=== PATIENT | female | born 1950 | race Caucasian/White ===

== ENCOUNTER 2017-09-13 14:50 | Inpatient (IN) | payer MEDICARE ==
[2017-09-13] MEDS ORDERED: niCARdipine 20MG In NaCl 20 MG/200 ML BAG ONE (16:21)
[2017-09-13 17:10] LABS: #Basophils 0.1 thou/uL (0.0-0.2); #Eosinphils 0.2 thou/uL (0.0-0.7); #Lymphocytes 2.3 thou/uL (1.20-3.40); #Neutrophils 8.5 thou/uL (1.40-6.50); %Basophils 0.9 % (0.0-1.0); %Eosinophils 1.6 % (0.0-10.0); %Lymphocytes 18.7 % (21.0-51.0); %Monocytes 8.1 % (0.0-10.0); %Neutrophils 70.7 % (42.0-75.0); Hemoglobin 13.9 g/dL (12.0-16.0); Mean Corpuscular HGB CONC 33.5 g/dL (32.0-36.0); Mean Corpuscular Volume 86.7 fl (81.0-99.0); Mean Platelet Volume 7.1 fL (7.4-10.4); Platelet Count 416 thou/uL (130-400); RBC Distribution Width 12.4 % (11.5-14.5); White Blood Cell (WBC) Count 12.1 thou/uL (4.8-10.8)
[2017-09-13 17:20] LABS: ALT (SGPT) 24 U/L (8-55); AST (SGOT) 21 U/L (5-34); Albumin 4.4 g/dL (3.4-4.8); Alkaline Phosphatase 80 U/L (40-150); Anion Gap 17 mmol/L (10-20); BUN (Urea Nitrogen) 21 mg/dL (9.8-20.1); Bilirubin, Total 0.5 mg/dL (0.2-1.2); Calc. Creatinine Clearance 0 mL/min (70-130); Calcium 9.7 mg/dL (7.8-10.44); Carbon Dioxide 22 mmol/L (23-31); Chloride 104 mmol/L (98-107); Estimated GFR-MDRD 80; Globulin 3.3 g/dL (2.4-3.5); Glucose 162 mg/dL (80-115); Potassium 4.2 mmol/L (3.5-5.1); Protein, Total 7.7 g/dL (6.0-8.3); Sodium 139 mmol/L (136-145)
[2017-09-13] MEDS ORDERED: Acetaminophen 650 MG Suppository ONE (18:46)
[2017-09-13] MEDS ORDERED: Ondansetron HCl/PF 4 MG/2 ML Vial IVP PRN (19:22)
[2017-09-13] MEDS ORDERED: Dextrose 5% in Water 1,000 ML IV PRN (19:22)
[2017-09-13] MEDS ORDERED: Dextrose 50% Abboject 50 ML SYRINGE SLOW IVP PRN (19:22)
[2017-09-13] MEDS ORDERED: HumaLOG 300 UNITS/3 ML VIAL SC PRN (19:22)
[2017-09-13] MEDS ORDERED: Lorazepam 2 MG/ML VIAL SLOW IVP PRN (19:22)
[2017-09-13] MEDS ORDERED: Famotidine/PF 20 mg/2ml Vial SLOW IVP SCH (21:00)
[2017-09-13 21:12] LABS: Amphetamine Not Detected (NotDetected); Barbiturates Screen Not Detected (NotDetected); Benzodiazepine Screen Not Detected (NotDetected); Cocaine Metabolite Screen Not Detected (NotDetected); Medtox Control Line Valid? VALID (VALID); Medtox Reader # READER 1; Methadone Not Detected (NotDetected); Methamphetamine Not Detected (NotDetected); Opiate Screen Not Detected (NotDetected); Oxycodone Screen Not Detected (NotDetected); Phencyclidine (PCP) Not Detected (NotDetected); THC/Cannabinoid Screen Not Detected (NotDetected); Tricyclic Screen Detected (NotDetected)
[2017-09-13] MEDS: Sodium Chloride 0.9% 1,000 ML IV SCH (21:21)
[2017-09-13] MEDS: Lorazepam 2 MG/ML VIAL SLOW IVP PRN (21:22)
[2017-09-13] MEDS: Famotidine 40 MG/4 ML VIAL SLOW IVP SCH (21:38)
--- NOTE | 2017-09-14 00:38 | HP ---
REASON FOR ADMISSION: Right upper extremity possible focal seizure, acute encephalopathy. HISTORY OF PRESENTING ILLNESS: Please note majority of this history is obtained by talking to patient's 3 daughters who are here at bedside and . The patient is not oriented and is very lethargic. She also has right upper extremity shaking, likely focal seizures. Per family, the patient slumped over on Wednesday and they took her to [facility]. She was placed under observation to rule out transient ischemic attack. On Wednesday around 3 in the afternoon, they discharged her after preliminary workup showing no acute CVA. This morning, the patient became unresponsive and could not talk. Her blood pressure was 200 in the house. They took her to [facility] where she was found to have had systolic blood pressures in the 200s. Her CT brain was negative. They did not have a neurologist and the patient was transferred here for further care. Family also mentioned that she usually shakes her right upper extremity occasionally, but not continuously as of now. On a good day, the patient feeds herself and talks continuously most of which could be understood by family even though she has dysarthria from prior stroke. She usually helps with transfers. She has caregiver at home Wednesday to Wednesday. She also goes to [facility] for exercising her right upper and lower extremities. She has sustained left hemiplegia in 2002. No fever. She has had three new medications including gabapentin, Risperdal and Crestor. These were introduced in the last 1-2 weeks per family. PAST MEDICAL AND SURGICAL HISTORY: History of CVA with left hemiplegia from 2002; dysarthria and she also has mild dysphagia when she tries to eat quicker; diabetes mellitus, type 2; hypertension; dementia; hysterectomy; cholecystectomy ; x2. CURRENT MEDICATIONS: Gabapentin 600 mg p.o. 3 times daily, Lipitor 80 mg p.o. at bedtime. Crestor was added to her regimen, it is likely an error or duplicate script with her visiting two different hospitals. Donepezil 5 mg daily, Flexeril 10 mg once in the morning and 2 tablets at bedtime, Risperdal 0.5 mg at 6:00 p.m., metformin 1 gram twice daily, lisinopril 40 mg p.o. daily. ALLERGIES: Allergic to COMPAZINE. PERSONAL HISTORY: Does not abuse alcohol or drugs. No history of smoking. She lives with her and children. FAMILY HISTORY: Please note the patient is adopted. Her adopted mom of coronary artery disease at the age of 56. Her adopted father of unknown cancer at the age of 77 years. REVIEW OF SYSTEMS: Cannot be obtained as patient is not oriented at present. PHYSICAL EXAMINATION: GENERAL: The patient is a 67-year-old female who is very lethargic and seems to have right upper extremity focal seizures. VITAL SIGNS: Blood pressure 119/126, pulse 120 per minute, respiratory rate 24 per minute, temperature 98.8 degrees Fahrenheit, saturating 99% on room air. NECK: Supple, no elevated JVD. HEENT: Eyes: Extraocular muscles intact. Pupils are reacting to light. Oral cavity: Mucous membranes are dry. No exudates or congestion. CARDIOVASCULAR SYSTEM: S1, S2 heard. Regular rhythm, tachycardic. RESPIRATORY SYSTEM: Air entry 1+ bilateral. No rales or rhonchi. ABDOMEN: Soft, bowel sounds heard. No tenderness, rigidity or guarding. EXTREMITIES: No peripheral edema or calf tenderness. VASCULAR SYSTEM: Peripheral pulses 1+ bilateral, no ischemic ulcerations or gangrene. CENTRAL NERVOUS SYSTEM: The patient has chronic left hemiplegia with wasting of left upper and lower extremities. She is also having focal seizures with repeated flexion-extension of right upper extremity. She is not doing the same with right lower extremity. PSYCHIATRIC SYSTEM: Cannot be assessed due to patient's current cognitive status. LABORATORY AND X-RAY FINDINGS: The patient apparently has had a CT brain done at [facility] this afternoon, which did not show any acute infarct or bleed Per Dr. Villavicencio, ER physician here. White count of 12, H&H 13 and 41, platelet count 416 with MCV of 86 and 70% neutrophils. Electrolytes are stable. BUN 21, creatinine 0.7, glucose 162. Liver enzymes within normal limits. Albumin is 4.4. CLINICAL IMPRESSION AND PLAN: The patient will be admitted to [facility] for hypertensive emergency and patient is currently on Cardene drip with systolic blood pressures coming down to 150s. She will be on normal saline at 80 mL per hour. The patient has what appears to be a right upper extremity focal seizure. I have discussed her findings with Dr. De Los Santos, who will be shortly examining patient. He will be directing anti-seizure medications after clinical exam. An MRI with and without contrast will be obtained. We will continue her Lipitor and Aricept, starting tomorrow. She will be kept n.p.o. for now. We will obtain urine drug screen, stat TSH levels for now. Please note the patient also has old left hemiplegia and has dysarthria and likely has mild dysphagia as well. I have discussed the current findings and possible etiologies for her right upper extremity flailing with acute encephalopathy with the and children at bedside. We also discussed code status with them. They do not want her to be intubated, but they are okay with chest compressions for now. Please note the patient was also started on 2 new medications including Risperdal and gabapentin, both of which will be held for now. We will continue to closely monitor her in IMCU. [facility]
[2017-09-14] MEDS: Lorazepam 2 MG/ML VIAL SLOW IVP PRN ×2 (01:56→21:02)
[2017-09-14 04:54] LABS: #Basophils 0.1 thou/uL (0.0-0.2); #Eosinphils 0.2 thou/uL (0.0-0.7); #Lymphocytes 1.9 thou/uL (1.20-3.40); #Monocytes 0.8 thou/uL (0.11-0.59); #Neutrophils 6.1 thou/uL (1.40-6.50); %Basophils 0.9 % (0.0-1.0); %Eosinophils 2.3 % (0.0-10.0); %Lymphocytes 20.5 % (21.0-51.0); %Neutrophils 67.4 % (42.0-75.0); Hemoglobin 12.7 g/dL (12.0-16.0); Mean Corpuscular HGB CONC 33.2 g/dL (32.0-36.0); Mean Corpuscular Hemoglobin 28.8 pg (27.0-31.0); Mean Corpuscular Volume 86.9 fl (81.0-99.0); Mean Platelet Volume 6.9 fL (7.4-10.4); Platelet Count 383 thou/uL (130-400); RBC Distribution Width 12.3 % (11.5-14.5); Red Blood Cell (RBC) Count 4.42 mill/uL (4.20-5.40); White Blood Cell (WBC) Count 9.1 thou/uL (4.8-10.8)
[2017-09-14 05:08] LABS: Anion Gap 16 mmol/L (10-20); BUN (Urea Nitrogen) 23 mg/dL (9.8-20.1); Calc. Creatinine Clearance 59 mL/min (70-130); Calcium 8.6 mg/dL (7.8-10.44); Carbon Dioxide 18 mmol/L (23-31); Chloride 108 mmol/L (98-107); Estimated GFR-MDRD 83; Glucose 145 mg/dL (80-115); Sodium 138 mmol/L (136-145)
[2017-09-14] MEDS: Sodium Chloride 0.9% 1,000 ML IV SCH ×2 (08:36→21:00)
[2017-09-14] MEDS: Enoxaparin Sodium 40 MG/0.4 ML SYRINGE SC SCH (08:36)
[2017-09-14] MEDS: Famotidine 40 MG/4 ML VIAL SLOW IVP SCH (08:36)
[2017-09-14] MEDS ORDERED: Sodium Chloride 0.9% 1,000 ML IV SCH (09:00)
[2017-09-14] MEDS: Labetalol HCl 100 MG/20 ML VIAL SLOW IVP PRN ×5 (09:34→21:02)
[2017-09-14] MEDS: Primidone 50 MG TAB PO SCH ×2 (11:27→21:05)
[2017-09-14 13:19] VITALS: BMI 29.6
--- NOTE | 2017-09-14 13:39 | CON ---
DATE OF CONSULTATION: 09/14/2017 SERVICE: Pulmonary Medicine. REASON FOR CONSULTATION: ICU patient. HISTORY OF PRESENT ILLNESS: The patient is a 67-year-old white female with past medical history significant for history of cerebrovascular accident. She also has advancing dementia. She has had multiple hospital stays here recently. Most recently, she was having some agitation. She went to [facility]. They started a new medication, Risperdal. There was concern for CVA and she underwent a workup. She had both CT and apparently an MRI. There were no acute findings that were identified. She was discharged from the hospital a little over a week ago. As previously mentioned, Risperdal and gabapentin were both new. Otherwise, she was in her usual state of health which is talking with significant dysarthria and moving around with assistance, but able to walk and take some steps, she became increasingly somnolent over the past 2 days with increasing slurring of the speech. Yesterday, she was found to be a little poorly responsive. She was brought to the emergency department once again. PAST MEDICAL HISTORY: 1. History of CVA with left-sided hemiplegia. 2. Dysarthria, chronic. 3. Type 2 diabetes mellitus. 4. Hypertension. 5. Dyslipidemia. 6. Dementia. PAST SURGICAL HISTORY: 1. Hysterectomy. 2. Cholecystectomy. 3. section x2. ALLERGIES: COMPAZINE. MEDICATIONS: List of her inpatient and outpatient medications was reviewed. Centrally acting medications were suspended. I gave her a liter of fluid, and we will try to get her off of the blood pressure drip. FAMILY HISTORY: Noncontributory. SOCIAL HISTORY: She does not have any access to alcohol, tobacco or illicit drugs at this time. She has no exposures that we are aware of. She lives with her and children. REVIEW OF SYSTEMS: This cannot be obtained as the patient is currently encephalopathic. PHYSICAL EXAMINATION: VITAL SIGNS: Afebrile, pulse 96, blood pressure 158/93, respirations 22, saturation 100% on room air. GENERAL: The patient is awake and alert. She is in no apparent distress. She has a general tremor. She will attend if you stimulate her. While sleeping, she demonstrates absolutely no tremor, but on waking or with any type of stimulation, she starts having a tremor in the right upper extremity. HEENT: Normocephalic, atraumatic. Sclerae are white, conjunctivae pink. Oral mucosa is moist without lesions. LUNGS: Decent air entry. There is no prolonged expiratory phase or wheezing appreciated. HEART: Tachycardic. Regular. ABDOMEN: Soft, nontender, nondistended. Bowel sounds are positive. MUSCULOSKELETAL: No cyanosis or clubbing. There is no pitting in the bilateral lower extremities. Tenting is present throughout. GENITOURINARY: No Redd catheter. NEUROLOGIC: See discussion and plan. LABORATORY DATA: WBC 9.1, hemoglobin 12.7, platelets 383,000. Basic metabolic profile is unremarkable. Bicarbonate 18, BUN 23, creatinine 0.71. Previous liver function studies were unremarkable including AST and ALT. Prolactin is 85 , TSH 2.5, down trending to 1.8. Urine drug screen is positive for TCAs. ASSESSMENT: 1. Metabolic encephalopathy. 2. Tremor. 3. Dementia. PLAN: I will get a CK, as she demonstrates a little bit of rigidity of the bilateral upper and lower extremities. It is not lead piping, but it may be on that spectrum. She has superimposed tremor in the right upper and lower extremities with stimulation that goes away otherwise. We will hold centrally acting medications. An EEG has been performed. The patient just had 2 imaging studies of her brain and so the MRI will be suspended for the time being. We will continue her maintenance fluids. She looks a little dry and so I will give her a liter of fluid as well. If the CK is unremarkable, we will transition her out of the ICU to the Neuro Unit. Pulmonary or Critical Care will continue to follow for the time being. 70 minutes have been devoted to this patient in various activities. I personally reviewed all imaging studies and laboratory data noted within this document. For fifty percent of this time, I was interacting with the patient at the bedside or coordinating care with the care team. For the remainder of the time I was immediately available to the patient in the hospital unit. MONIE
--- NOTE | 2017-09-14 16:42 | PDOC.PN ---
- Subjective Encounter Start Date: 09/14/17 Encounter Start Time: 12:35 Subjective: still is encephalopathic, not responding to verbal stimuli -: is shaking her right UE - Objective MAR Reviewed: Yes Vital Signs & Weight: Vital Signs (12 hours) Temp Pulse Resp BP Pulse Ox 09/14/17 16:00 98.2 F 09/14/17 15:13 96 192/99 H 09/14/17 13:00 98.3 F 09/14/17 11:31 96 151/77 H 09/14/17 09:34 96 151/77 H 09/14/17 07:32 98.1 F 96 22 H 100 09/14/17 07:00 98.1 F Weight Admit Weight 104 lb 15.04 oz Weight 146 lb 11 oz Most Recent Monitor Data Heart Rate from ECG 94 NIBP 166/100 NIBP BP-Mean 127 Respiration from ECG 28 SpO2 98 I&O: 09/13/17 09/14/17 09/15/17 06:59 06:59 06:59 Intake Total 663 1000 Output Total 600 Balance 663 400 Result Diagrams: 09/14/17 04:17 09/14/17 04:17 Additional Labs: Accuchecks 09/14/17 09/14/17 11:20 00:53 POC Glucose 154 H 124 H Phys Exam - Physical Examination HEENT: PERRLA, sclera anicteric Neck: no JVD holds her neck stiff Respiratory: no wheezing, no rales Cardiovascular: RRR, no significant murmur Gastrointestinal: soft, non-tender, no distention, positive bowel sounds Musculoskeletal: no edema, pulses present chronic left hemiplegia, right UE tremors/shaking not oriented, awakens but does not interact Dx/Plan (1) Acute encephalopathy Code(s): G93.40 - ENCEPHALOPATHY, UNSPECIFIED Status: Acute (2) Focal seizure Status: Suspected (3) Hemiparesis due to old cerebrovascular accident Code(s): I69.359 - HEMIPLGA FOLLOWING CEREBRAL INFARCTION AFFECTING UNSP SIDE Status: Chronic Comment: left hemiplegia (4) HTN (hypertension) Code(s): I10 - ESSENTIAL (PRIMARY) HYPERTENSION Status: Chronic Qualifiers: Hypertension type: essential hypertension Qualified Code(s): I10 - Essential (primary) hypertension (5) DM type 2 (diabetes mellitus, type 2) Status: Chronic Qualifiers: Diabetes mellitus intermediate card tender insulin use: without mcfp use Diabetes mellitus complication status: with unspecified complications Qualified Code(s) : E11.8 - Type 2 diabetes mellitus with unspecified complications - Plan got EEG done this am -: tx to stroke unit, speech for clearance-oral intake -: ?LP if ok with neurology -: right UE shaking suspected to be tremors, is on primidone -: unclear etiology for encephalopathy, await cultures * . , 2 daughters were given updates at bedside. Review of Systems - Medications/Allergies Allergies/Adverse Reactions: Allergies Allergy/AdvReac Type Severity Reaction Status Date / Time prochlorperazine Allergy Verified 09/14/17 05:47 [From Compazine] Medications: Current Medications Acetaminophen (Tylenol) 650 mg PO Q4H PRN PRN Reason: Headache/Fever or Pain Acetaminophen (Tylenol) 650 mg [place] Q4H PRN PRN Reason: Headache/Fever or Pain Atorvastatin Calcium (Lipitor) 80 mg PO HS [facility] Dextrose/Water (Dextrose 50%) 25 gm SLOW IVP PRN PRN PRN Reason: Hypoglycemia Enoxaparin Sodium (Lovenox) 40 mg SC 0900 [facility] Last Admin: 09/14/17 08:36 Dose: 40 mg Glucagon (Glucagon) 1 mg IM PRN PRN PRN Reason: Hypoglycemia Dextrose/Water (D5w) 1,000 mls @ 0 mls/hr IV .Q0M PRN; As Directed PRN Reason: Hypoglycemia Sodium Chloride (Normal Saline 0.9%) 1,000 mls @ 80 mls/hr IV .[id number] [facility] Last Admin: 09/14/17 08:36 Dose: 1,000 mls Insulin Human Lispro (Humalog) 0 units SC .MILD SLIDING SCALE PRN PRN Reason: Mild Correctional Scale Insulin Human Lispro (Humalog) 0 units SC .BEDTIME SLIDING SC PRN PRN Reason: Bedtime Correctional Scale Labetalol HCl (Normodyne) 20 mg SLOW IVP Q10MIN PRN PRN Reason: SBP Greater Than 180 Last Admin: 09/14/17 15:13 Dose: 20 mg Lorazepam (Ativan) 1 mg SLOW IVP Q4H PRN PRN Reason: tremors Last Admin: 09/14/17 01:56 Dose: 1 mg Primidone (Mysoline) 50 mg PO BID [facility] Last Admin: 09/14/17 11:27 Dose: 50 mg Sodium Chloride (Flush - Normal Saline) 10 ml IVF Q12HR [facility] Last Admin: 09/14/17 08:55 Dose: Not Given Sodium Chloride (Flush - Normal Saline) 10 ml IVF PRN PRN PRN Reason: Saline Flush
--- NOTE | 2017-09-14 20:47 | PRG ---
DATE OF SERVICE: 09/14/2017 SUBJECTIVE: Ms. Little continues to have persistent tremors in the right hand and the chin. Per lamonte ziegler, the patient does have a history of dementia and she does have episodes of confusion and disorie ntation that is not new. Today, she has been somewhat lethargic, although the nurses report that she does wake up and able to state her name and age. She is able to follow some simple commands. She w as not able to pass a swallow test and thus no primidone was given. She was only given 1 dose of IV Ativan, which I am not sure whether that has helped or not. PHYSICAL EXAMINATION: VITAL SIGNS: Blood pressure of 204/92, pulse of 77, temperature 98.8, respirations of 20, O2 sats 94 % on room air. GENERAL: Well-developed, well-nourished female resting in bed, in no apparent distress. RESPIRATORY: Clear to auscultation bilaterally. CARDIOVASCULAR: Regular rate and rhythm. NEUROLOGIC: Mental status: The patient is a drowsy appearing. She does wake up to verbal stimuli. She is able to state her name, her age, and able to identify her daughter and state her name as well as her . She is able to follow some simple commands. Cranial nerves: Pupils are 3 mm and r eactive. Visual zhou are full to threat. External muscles are intact. Face appears symmetric. T here is a tremor noted in her chin. Motor exam showed gegenhalten of upper extremities. Her strengt h appears 5/5 on both upper extremities. There is persistent tremors noted in the right hand that te nds to improve when she is being relaxed, during that time, she is able to follow commands. LABORATORY DATA: Reviewed, which included CBC and BMP, which is significant for glucose of 158 and C PK of 357, otherwise unremarkable. IMAGING STUDIES: CT head done at [facility] was reviewed, which showed extensive chr onic microvascular ischemic changes, otherwise no acute intracranial abnormality. IMPRESSION: 1. Tremors, likely essential tremors. 2. Dementia. 3. Encephalopathy. Ms. Little is a pleasant 67-year-old female who presented with tremors in her right hand a nd confusion. In my opinion, her tremors are likely essential tremors. Her confusion is likely meta bolic encephalopathy with underlying dementia. At this time, I have asked the nurse to give Ativan 1 mg IV dose since she is not able to take anything by mouth. I will start her on IV Keppra 500 mg b. i.d. as it may also help with the tremors. Once she is able to take oral medications, I will switch her from Keppra to a primidone. I have reviewed her EEG that was done earlier today, which did not s how any epileptiform discharges or sharp transients. While she was having tremors, she did have trip hasic waves, which would suggest encephalopathy. At this time, I would recommend continuing supporti ve care.
[2017-09-14] MEDS ORDERED: Donepezil HCl 5 MG TAB PO SCH (21:00)
[2017-09-14] MEDS: Atorvastatin Calcium 40 MG TAB PO SCH (21:05)
--- NOTE | 2017-09-14 21:38 | CON ---
DATE OF CONSULTATION: 09/13/2017 REFERRING PHYSICIAN: Dr. Yesica Wesley. REASON FOR CONSULTATION: Right upper extremity shaking and jerking. HISTORY OF PRESENT ILLNESS: Ms. Little is a pleasant 67-year-old female, who has been concerned for evaluation of right upper extremity shaking and jerking. History is obtained from patient's daughters and , who was present at bedside. Apparently, patient has been noted to have shaking and jerking of her right upper extremity since last Wednesday. This has been continuous. The daughter reports that she has had history of some shaking in her right arm over the past 6-8 months they were primarily present with activities; however, this severely got worse about last Wednesday. She had gone to [facility] where they had performed MRI brain and CT scan of the head, which were apparently unremarkable. They were told that she had a TIA and was discharged to home. Family reported that the tremors have been persistent since that day. She is also having confusion and decreased level of alertness as the symptoms were ongoing they decided to take her to the [facility], where she was noted to have systolic blood pressure in the 200s. She had a CT scan of the head done, which was negative. Since they did not have a neurologist for the coverage, the patient's family were asked to try and bring her to the [facility] for further evaluation. The patient has not had any fever, chills, headache, chest pain, palpitation during this time. PAST MEDICAL HISTORY: Significant for history of stroke in 2002 that resulted in left hemiplegia, left hemiparesis, hypertension, diabetes, and dementia. PAST SURGICAL HISTORY: Significant for hysterectomy, cholecystectomy, C- section x2. CURRENT MEDICATIONS: Please review MAR. ALLERGIES: Include COMPAZINE. SOCIAL HISTORY: She is adopted. She denies smoking or alcohol use. She does not smoke cigarettes, drink alcohol or use illicit drugs. She is . REVIEW OF SYSTEMS: As mentioned, which was negative. PHYSICAL EXAMINATION: VITAL SIGNS: Blood pressure of 137/78, pulse of 120, temperature of 97.6, respirations of 18, and O2 sats of 100% on room air. GENERAL: Well-developed, well-nourished female, in no apparent distress. RESPIRATORY: Clear to auscultation bilaterally. CARDIOVASCULAR: Regular rate and rhythm. NEUROLOGIC: Mental status: The patient is awake and alert. She is oriented to person only. She does not follow any commands. Speech and language: Severely dysarthric speech. Cranial nerves: Pupils are 3 mm and reactive. She blinks to threat bilaterally. Face appears symmetric. There is a tremor noted in her chin. There is no real appears midline. Motor exam showed increased tone of the left upper and left lower extremity. Her tone in the right upper and right lower extremity appears normal. She does have a gegenhalten, which makes it difficult to evaluate at that tone and rigidity of the right side. Her strength appears 4/5 in the right upper and right lower extremity and 3/5 in the left upper and left lower extremity. Sensory: She does withdraw to pain in both upper and lower extremities. Babinski. Deep tendon reflexes, brisk reflexes in both upper and lower extremities. Babinski: Plantar responses flexion bilaterally. Coordination gait and Romberg could not be tested. There is a persistent right hand and chin tremor noted. These are unlikely to be focal motor seizures as the tremor tends to resolve when patient is being calm and tends to apple picker more intensity when she gets somewhat anxious LABORATORY DATA: Reviewed, which included CBC, CMP, and urine drug screen, which is significant for white cell count of 12.1, platelet count of 416, glucose of 162, otherwise unremarkable. IMPRESSION: 1. Tremors. 2. Encephalopathy. ASSESSMENT AND PLAN: Ms. Little is a pleasant 67-year-old female with history of dementia, who presented with the episodes of tremors and confusion. On my exam, she is noted to have a persistent tremors in her right upper extremity, more so on the hand and the chin. These are likely essential tremors. This tremors are likely worsened with current changes in medications. There was initiated for her hallucinations which included risperidone as well as Neurontin. It is unknown. Family members do not know exactly when the risperidone was started. At this time, I would recommend starting patient on Primidone 50 mg b.i.d. until she is able to take oral intake, she is okay to receive Ativan 1 mg IV q.4 hours p.r.n. I will obtain EEG in the morning. She had an MRI brain done recently by [facility]. I will try to get the records from there to further evaluate for recent events. If we are not able to obtain those records, then we will obtain MRI brain with and without contrast over the next day or two. Continue supportive care. MTDD
[2017-09-15] MEDS: Labetalol HCl 100 MG/20 ML VIAL SLOW IVP PRN ×6 (06:35→23:47)
--- NOTE | 2017-09-15 09:03 | PRG ---
DATE OF SERVICE: 09/15/2017 SERVICE: Pulmonary Medicine. INTERVAL HISTORY: The patient is doing fine from a respiratory standpoint. She denies any current shortness of breath or chest discomfort. She is much more awake and responsive today. She still has a way to go to get back to baseline. However, she is clearly moving in the right direction. There were no overnight events. PHYSICAL EXAMINATION: VITAL SIGNS: Afebrile, pulse 73, blood pressure 132/70, respirations 16, saturation 91% on room air. GENERAL: Patient is awake and responsive. She is following some simple commands and answering simple questions. HEENT: Normocephalic, atraumatic. Sclerae are white, conjunctivae pink. Oral mucosa is moist without lesions. LUNGS: Decent air entry. I do not hear rhonchi, wheezing or crackles. HEART: Normal rate and regular. ABDOMEN: Soft, nontender, nondistended. Bowel sounds are positive. MUSCULOSKELETAL: No cyanosis or clubbing. There is no pitting in the bilateral lower extremities. NEUROLOGIC: Grossly nonfocal. LABORATORY DATA: Previous CK was 357. ASSESSMENT: 1. Metabolic encephalopathy. 2. Essential tremor. 3. Dementia. PLAN: The patient is clearly improving from a mentation standpoint. As such, we will continue supportive care. When she can tolerate p.o., we will transition her off the Keppra and primidone. If she cannot tolerate p.o. with another 24-48 hours, we may need to consider temporary feeding which can be discussed with the family. At this point, she has no need for ongoing pulmonary or critical care opinion. As such, I will sign off. Please call with additional questions or concerns. MONIE
--- NOTE | 2017-09-15 10:00 | PDOC.PN ---
- Subjective Encounter Start Date: 09/15/17 Encounter Start Time: 14:00 Subjective: Patient sleeping after given ativan. No changes. - Objective MAR Reviewed: Yes Vital Signs & Weight: Vital Signs (12 hours) Temp Pulse Resp BP Pulse Ox 09/15/17 08:00 97.1 F L 73 16 209/117 H 91 L 09/15/17 07:40 172/70 H 09/15/17 06:35 62 09/15/17 03:41 97.5 F L 62 14 182/80 H 100 09/14/17 23:23 98.0 F 75 16 160/76 H 91 L 09/14/17 22:47 172/88 H Weight Admit Weight 104 lb 15.04 oz Weight 146 lb 11 oz Most Recent Monitor Data Heart Rate from ECG 94 NIBP 166/100 NIBP BP-Mean 127 Respiration from ECG 28 SpO2 98 I&O: 09/14/17 09/15/17 09/16/17 06:59 06:59 06:59 Intake Total 663 1000 1920 Output Total 600 Balance 769 998 4814 Result Diagrams: 09/14/17 04:17 09/14/17 04:17 Additional Labs: Accuchecks 09/15/17 09/14/17 09/14/17 06:28 23:33 18:12 POC Glucose 106 122 H 158 H 09/14/17 11:20 POC Glucose 154 H Phys Exam - Physical Examination Constitutional: NAD HEENT: moist MMs Respiratory: no wheezing, no rales, no rhonchi, clear to auscultation bilateral Cardiovascular: RRR, no significant murmur Gastrointestinal: soft, positive bowel sounds Deviation from normal: sleeping Dx/Plan (1) Acute encephalopathy Code(s): G93.40 - ENCEPHALOPATHY, UNSPECIFIED Status: Acute (2) DM type 2 (diabetes mellitus, type 2) Status: Chronic Qualifiers: Diabetes mellitus senior living insulin use: without lobsterman use Diabetes mellitus complication status: with unspecified complications Qualified Code(s) : E11.8 - Type 2 diabetes mellitus with unspecified complications (3) HTN (hypertension) Code(s): I10 - ESSENTIAL (PRIMARY) HYPERTENSION Status: Chronic Qualifiers: Hypertension type: essential hypertension Qualified Code(s): I10 - Essential (primary) hypertension Comment: Uncontrolled, unable to take po Lisinopril. Will add IV hydralazine as needed. (4) Hemiparesis due to old cerebrovascular accident Code(s): I69.359 - HEMIPLGA FOLLOWING CEREBRAL INFARCTION AFFECTING UNSP SIDE Status: Chronic Comment: left hemiplegia - Plan cont current plan of care, PT/OT May need PEG if swallow doesn't improve. * . - Discharge Day Encounter end time: 14:20
[2017-09-15] MEDS: Acetaminophen 325 MG TAB PO PRN (11:24)
[2017-09-15] MEDS: Sodium Chloride 0.45% 1,000 ML IV SCH (11:24)
[2017-09-15] MEDS: Enoxaparin Sodium 40 MG/0.4 ML SYRINGE SC SCH (11:24)
[2017-09-15] MEDS: Primidone 50 MG TAB PO SCH ×2 (11:25→20:17)
[2017-09-15] MEDS: hydrALAZINE 20 MG/ML VIAL SLOW IVP PRN ×3 (11:47→20:52)
[2017-09-15] MEDS: Lorazepam 2 MG/ML VIAL SLOW IVP PRN ×2 (11:49→20:07)
[2017-09-15] MEDS: Sodium Chloride 0.9% 1,000 ML IV SCH (12:32)
[2017-09-15] MEDS: Atorvastatin Calcium 40 MG TAB PO SCH (20:17)
[2017-09-16] MEDS: Sodium Chloride 0.45% 1,000 ML IV SCH ×2 (02:22→20:25)
[2017-09-16] MEDS: Labetalol HCl 100 MG/20 ML VIAL SLOW IVP PRN (04:41)
[2017-09-16] MEDS: Lorazepam 2 MG/ML VIAL SLOW IVP PRN ×3 (05:07→21:20)
[2017-09-16 05:45] LABS: #Basophils 0.1 thou/uL (0.0-0.2); #Eosinphils 0.3 thou/uL (0.0-0.7); #Lymphocytes 1.8 thou/uL (1.20-3.40); #Monocytes 0.9 thou/uL (0.11-0.59); %Eosinophils 3.8 % (0.0-10.0); %Monocytes 9.9 % (0.0-10.0); %Neutrophils 65.4 % (42.0-75.0); Hemoglobin 12.2 g/dL (12.0-16.0); Mean Corpuscular Hemoglobin 27.6 pg (27.0-31.0); Mean Corpuscular Volume 86.2 fl (81.0-99.0); Mean Platelet Volume 7.4 fL (7.4-10.4); Platelet Count 356 thou/uL (130-400); RBC Distribution Width 12.2 % (11.5-14.5); Red Blood Cell (RBC) Count 4.44 mill/uL (4.20-5.40); White Blood Cell (WBC) Count 9.1 thou/uL (4.8-10.8)
[2017-09-16 05:51] LABS: Anion Gap 16 mmol/L (10-20); BUN (Urea Nitrogen) 15 mg/dL (9.8-20.1); Calc. Creatinine Clearance 85 mL/min (70-130); Calcium 8.9 mg/dL (7.8-10.44); Carbon Dioxide 19 mmol/L (23-31); Chloride 106 mmol/L (98-107); Estimated GFR-MDRD 85; Glucose 130 mg/dL (80-115); Magnesium 1.4 mg/dL (1.6-2.6); Phosphorus 3.8 mg/dL (2.3-4.7); Potassium 3.6 mmol/L (3.5-5.1); Sodium 137 mmol/L (136-145)
[2017-09-16] MEDS: Primidone 50 MG TAB PO SCH ×5 (08:05→20:15)
[2017-09-16] MEDS: Enoxaparin Sodium 40 MG/0.4 ML SYRINGE SC SCH (09:27)
--- NOTE | 2017-09-16 09:42 | PDOC.PN ---
- Subjective Encounter Start Date: 09/16/17 Encounter Start Time: 11:50 Subjective: Patient agitated, repeating "headache" constantly. Sitter reports patient -: has had chronic SUE mult times per day since stroke in 2002, takes on -: Tylenol, 2-3 times daily for this. - Objective MAR Reviewed: Yes Vital Signs & Weight: Vital Signs (12 hours) Temp Pulse Resp BP BP BP Pulse Ox 09/16/17 07:42 97.6 F 86 16 172/98 H 97 09/16/17 04:49 167/104 H 09/16/17 04:41 74 09/16/17 04:00 97.8 F 74 16 200/98 H 96 09/16/17 01:19 169/92 H 09/16/17 00:07 180/94 H 09/16/17 00:00 97.3 F L 78 20 180/94 H 96 09/15/17 23:47 96 183/93 H 09/15/17 23:33 96 216/112 H 09/15/17 21:56 162/82 H Weight Admit Weight 104 lb 15.04 oz Weight 146 lb 11 oz Most Recent Monitor Data Heart Rate from ECG 94 NIBP 166/100 NIBP BP-Mean 127 Respiration from ECG 28 SpO2 98 I&O: 09/15/17 09/16/17 09/17/17 06:59 06:59 06:59 Intake Total 1000 3510 Output Total 600 Balance 400 3510 Result Diagrams: 09/16/17 04:32 09/16/17 04:32 Additional Labs: Accuchecks 09/16/17 09/16/17 09/15/17 05:41 00:16 20:25 POC Glucose 140 H 138 H 142 H 09/15/17 16:35 POC Glucose 128 H Phys Exam - Physical Examination mild agitation HEENT: moist MMs Respiratory: no wheezing, no rales, no rhonchi Cardiovascular: RRR, no significant murmur Gastrointestinal: soft, positive bowel sounds Musculoskeletal: no edema right sided tremor, left side weakness Deviation from normal: slurred speech and mostly just repeats what is said to her, more alert than yesterday Dx/Plan (1) Acute encephalopathy Code(s): G93.40 - ENCEPHALOPATHY, UNSPECIFIED Status: Acute Comment: improving, switching to oral primadone as able with swallow (2) DM type 2 (diabetes mellitus, type 2) Status: Chronic Qualifiers: Diabetes mellitus detention insulin use: without director long term care use Diabetes mellitus complication status: with unspecified complications Qualified Code(s) : E11.8 - Type 2 diabetes mellitus with unspecified complications Comment: holding metformin, ISS for now (3) HTN (hypertension) Code(s): I10 - ESSENTIAL (PRIMARY) HYPERTENSION Status: Chronic Qualifiers: Hypertension type: essential hypertension Qualified Code(s): I10 - Essential (primary) hypertension Comment: Uncontrolled, unable to take po Lisinopril. Will add IV hydralazine as needed. Restart oral meds as swallow allows. Will add HCTZ to the lisinopril as well. (4) Hemiparesis due to old cerebrovascular accident Code(s): I69.359 - HEMIPLGA FOLLOWING CEREBRAL INFARCTION AFFECTING UNSP SIDE Status: Chronic Comment: left hemiplegia - Plan cont current plan of care, PT/OT, speech therapy, DVT proph w/lovenox Suspect patient has an element of hypertensive encephalopathy. Mental -: status improving as BP improves. Will likely need placement in next few day -: after taking po well and BP better controlled. Family refusing SNF/rehab at -: this point so will eventually go home with HH. Await further Neuro eval and -: recs. * . - Discharge Day Encounter end time: 12:10
[2017-09-16] MEDS ORDERED: Lisinopril 20 MG TAB PO SCH (09:45)
[2017-09-16] MEDS ORDERED: Hydrochlorothiazide 25 MG TAB PO SCH (09:45)
[2017-09-16] MEDS: Acetaminophen 325 MG TAB PO PRN (10:54)
[2017-09-16] MEDS: hydrALAZINE 20 MG/ML VIAL SLOW IVP PRN ×2 (14:06→20:30)
--- NOTE | 2017-09-16 18:55 | PRG ---
DATE OF SERVICE: 09/16/2017 SUBJECTIVE: Ms. iLttle is a pleasant 67-year-old female who presented with the increasing confusion and tremors in the right upper extremity. She has been started on IV Keppra until she has been on oral intake. This has helped with the tremors according to her family. She was little more talkative yesterday. She was able to follow some simple commands yesterday. Today, she has been so mewhat more agitated. Her tremors are still under control with medication. She is still not able to swallow safely and thus continues to be on n.p.o. OBJECTIVE: VITAL SIGNS: Blood pressure of 175/76, pulse of 90, temperature of 97.6, respirations are 20, O2 sat s of 93% on room air. GENERAL: Somewhat agitated female, resting in bed, in no apparent distress. RESPIRATORY: Clear to auscultation bilaterally. CARDIOVASCULAR: Regular rate and rhythm. NEUROLOGICAL: Mental status: The patient is awake, but confused and disoriented. She is very agita rosa. She is able to respond to her name and able to follow some simple commands. Cranial nerves: P upils are 3 mm and reactive. Face appears symmetric. Motor exam showed normal tone on the right upp er and right lower extremity. She has increased tone in the left upper and left lower extremity that is from her prior stroke. Her tremors in the right hand is much less compared to day before yesterd ay when I saw her. She is more agitated today than previously seen. IMAGING STUDIES: MRI brain that was done at [facility] was reviewed, which showed prior right c erebral hemisphere hemorrhagic stroke. There were also micro hemorrhages throughout the brain. This is likely indicative of amyloid angiopathy. IMPRESSION: 1. Confusion, likely toxic metabolic encephalopathy with underlying dementia. 2. Essential tremors. ASSESSMENT AND PLAN: Ms. Little is a pleasant 67-year-old female who presented with the c onfusion and increasing tremors in the right upper extremity. I have reviewed her EEG that was done on day before yesterday, which showed no electrographic seizures. It showed mild to moderate nonspec ific cerebral dysfunction. Her tremors did not correlate with any seizure type activity. I have rev iewed her MRI brain done at [facility], which showed multiple microhemorrhages throughout the br ain, which would suggest amyloid angiopathy. This can explain her dementia. In my opinion, her rece nt confusion is due to toxic metabolic encephalopathy with underlying worsening of her dementia. I melchor yeung discussed with the family that they need to think about having a feeding tube placed for nutritio nal support. Once she is able to tolerate oral intake or have a feeding tube, she can be started on Seroquel 25 mg b.i.d. for agitation and confusion. She can also be started on primidone 50 mg b.i.d. for tremor control. Continue Ativan as needed.
[2017-09-16] MEDS: Atorvastatin Calcium 40 MG TAB PO SCH (20:17)
[2017-09-16] MEDS ORDERED: Non-Formulary Item 1 EACH (Risperidone [Risperdal] 0.5 MG) PO SCH (21:00)
[2017-09-17] MEDS: hydrALAZINE 20 MG/ML VIAL SLOW IVP PRN ×2 (00:07→15:59)
[2017-09-17 04:58] LABS: #Basophils 0.1 thou/uL (0.0-0.2); #Eosinphils 0.3 thou/uL (0.0-0.7); #Lymphocytes 1.9 thou/uL (1.20-3.40); #Neutrophils 6.9 thou/uL (1.40-6.50); %Eosinophils 3.2 % (0.0-10.0); %Lymphocytes 18.3 % (21.0-51.0); %Neutrophils 67.5 % (42.0-75.0); Hemoglobin 12.9 g/dL (12.0-16.0); Mean Corpuscular HGB CONC 33.8 g/dL (32.0-36.0); Mean Corpuscular Volume 85.9 fl (81.0-99.0); Platelet Count 367 thou/uL (130-400); RBC Distribution Width 12.2 % (11.5-14.5); Red Blood Cell (RBC) Count 4.46 mill/uL (4.20-5.40); White Blood Cell (WBC) Count 10.2 thou/uL (4.8-10.8)
[2017-09-17 05:22] LABS: Anion Gap 15 mmol/L (10-20); BUN (Urea Nitrogen) 13 mg/dL (9.8-20.1); Calc. Creatinine Clearance 92 mL/min (70-130); Calcium 9.2 mg/dL (7.8-10.44); Carbon Dioxide 20 mmol/L (23-31); Chloride 101 mmol/L (98-107); Estimated GFR-MDRD Greater than 90; Glucose 122 mg/dL (80-115); Magnesium 1.4 mg/dL (1.6-2.6); Potassium 3.5 mmol/L (3.5-5.1); Sodium 132 mmol/L (136-145)
[2017-09-17] MEDS: Lorazepam 2 MG/ML VIAL SLOW IVP PRN ×2 (05:51→20:57)
[2017-09-17] MEDS: Lisinopril 20 MG TAB PO SCH (08:23)
[2017-09-17] MEDS: Hydrochlorothiazide 25 MG TAB PO SCH (08:24)
[2017-09-17] MEDS: Primidone 50 MG TAB PO SCH ×2 (08:24→21:03)
[2017-09-17] MEDS: risperiDONE 0.25 MG TAB PO SCH ×2 (08:25→21:03)
[2017-09-17] MEDS: Enoxaparin Sodium 40 MG/0.4 ML SYRINGE SC SCH (08:26)
[2017-09-17] MEDS: Donepezil HCl 5 MG TAB PO SCH (08:26)
[2017-09-17] MEDS: Labetalol HCl 100 MG/20 ML VIAL SLOW IVP PRN (08:27)
[2017-09-17] MEDS ORDERED: Non-Formulary Item 1 EACH (Lisinopril [Lisinopril] 40 MG) PO SCH (09:00)
--- NOTE | 2017-09-17 09:15 | PDOC.PN ---
- Subjective Encounter Start Date: 09/17/17 Encounter Start Time: 10:30 Subjective: Patient more alert and less agitated this AM. Denies complaint. -: Speaking a bit more and with clearer speech. Still keeps eyes closed -: most of the time, but will open them if asked. - Objective MAR Reviewed: Yes Vital Signs & Weight: Vital Signs (12 hours) Temp Pulse Resp BP BP BP Pulse Ox 09/17/17 08:27 109 H 09/17/17 08:23 195/146 H 09/17/17 08:00 98.1 F 106 H 16 200/140 H 99 09/17/17 04:00 98.2 F 95 16 149/87 H 96 09/17/17 00:32 155/88 H 09/17/17 00:07 105 H 201/132 H 09/16/17 22:00 158/86 H Weight Admit Weight 104 lb 15.04 oz Weight 146 lb 11 oz Most Recent Monitor Data Heart Rate from ECG 94 NIBP 166/100 NIBP BP-Mean 127 Respiration from ECG 28 SpO2 98 I&O: 09/16/17 09/17/17 09/18/17 06:59 06:59 06:59 Intake Total 3510 900 Balance 3510 900 Result Diagrams: 09/17/17 04:35 09/17/17 04:35 Additional Labs: Accuchecks 09/17/17 09/17/17 09/16/17 06:29 00:13 16:57 POC Glucose 124 H 146 H 115 H 09/16/17 11:14 POC Glucose 134 H Phys Exam - Physical Examination Constitutional: NAD HEENT: moist MMs Respiratory: no wheezing, no rales, no rhonchi Cardiovascular: RRR, no significant murmur Gastrointestinal: soft, positive bowel sounds Musculoskeletal: no edema tremor in RUE much better, still a little restless, but much better than yesterday Psychiatric: normal affect Dx/Plan (1) Acute encephalopathy Code(s): G93.40 - ENCEPHALOPATHY, UNSPECIFIED Status: Acute Comment: improving, switching to oral primadone as able with swallow, likely related to progressive dementia (2) DM type 2 (diabetes mellitus, type 2) Status: Chronic Qualifiers: Diabetes mellitus care home insulin use: without middle or intermediate school principal use Diabetes mellitus complication status: with unspecified complications Qualified Code(s) : E11.8 - Type 2 diabetes mellitus with unspecified complications Comment: holding metformin, ISS for now (3) HTN (hypertension) Code(s): I10 - ESSENTIAL (PRIMARY) HYPERTENSION Status: Chronic Qualifiers: Hypertension type: essential hypertension Qualified Code(s): I10 - Essential (primary) hypertension Comment: Uncontrolled, unable to take po Lisinopril. Will add IV hydralazine as needed. Restart oral meds as swallow allows. Will add HCTZ to the lisinopril as well. (4) Hemiparesis due to old cerebrovascular accident Code(s): I69.359 - HEMIPLGA FOLLOWING CEREBRAL INFARCTION AFFECTING UNSP SIDE Status: Chronic Comment: left hemiplegia - Plan cont current plan of care, PT/OT, speech therapy Will need PEG if can't swallow, speech to reevaluate today. If gets -: PEG can go home with home health as family doesn't want SNF. * . - Discharge Day Encounter end time: 10:40
[2017-09-17] MEDS: Sodium Chloride 0.45% 1,000 ML IV SCH (13:01)
--- NOTE | 2017-09-17 20:13 | CON ---
DATE OF CONSULTATION: 09/17/2017 HISTORY OF PRESENT ILLNESS: Patient is a 67-year-old female who was admitted 4 days ago fo r altered mental status and some new tremors. The patient had difficulty feeding and has been evalua rosa by speech pathology and she has some swallowing defects. Reportedly, the family wants a percutan eous endoscopic gastrostomy. She adds nothing to history of present illness. PAST MEDICAL HISTORY: Includes cerebrovascular accident, diabetes mellitus and hypertension. PAST SURGICAL HISTORY: Includes hysterectomy, cholecystectomy, . MEDICATIONS: Include Lipitor 80 mg p.o. at bedtime, Aricept 5 mg p.o. daily, Lovenox 40 mg subcu q.a .m., insulin sliding scale, hydrochlorothiazide 12.5 mg daily, lisinopril 40 mg p.o. daily, Mysoline 50 mg p.o. b.i.d., risperidone 0.5 mg p.o. b.i.d., Keppra 500 mg IV b.i.d. ALLERGIES: Include COMPAZINE. SOCIAL HISTORY: Unobtainable. FAMILY HISTORY: Unobtainable. REVIEW OF SYSTEMS: Unobtainable. PHYSICAL EXAMINATION: VITAL SIGNS: Temperature 98.5, pulse 90, respiratory rate 20, blood pressure 202/110. HEENT: Shows neurologic deficits from previous cerebrovascular accident. CHEST: Clear. CARDIOVASCULAR: Regular rate and rhythm. ABDOMEN: Soft, nontender, without organomegaly or masses. RECTAL: Deferred. EXTREMITIES: Normal. LABORATORY DATA: Shows a white blood cell count 10.2, hemoglobin 12.9, hematocrit 38.3, sodium 132, CO2 of 20, glucose 122. ASSESSMENT: 1. Oropharyngeal dysphagia - multifactorial. 2. History of cerebrovascular accident. 3. Hypertension. RECOMMENDATIONS: EGD, percutaneous endoscopic gastrostomy in a.m.
[2017-09-17] MEDS: Atorvastatin Calcium 40 MG TAB PO SCH (21:03)
[2017-09-18] MEDS: Sodium Chloride 0.45% 1,000 ML IV SCH ×3 (04:39→18:43)
[2017-09-18 05:01] LABS: #Basophils 0.1 thou/uL (0.0-0.2); #Eosinphils 0.3 thou/uL (0.0-0.7); #Monocytes 0.9 thou/uL (0.11-0.59); #Neutrophils 4.9 thou/uL (1.40-6.50); %Basophils 0.8 % (0.0-1.0); %Eosinophils 3.9 % (0.0-10.0); %Lymphocytes 24.7 % (21.0-51.0); %Monocytes 10.6 % (0.0-10.0); Hemoglobin 12.1 g/dL (12.0-16.0); Mean Corpuscular HGB CONC 33.7 g/dL (32.0-36.0); Mean Corpuscular Hemoglobin 29.5 pg (27.0-31.0); Mean Corpuscular Volume 87.6 fl (81.0-99.0); Mean Platelet Volume 7.3 fL (7.4-10.4); Platelet Count 327 thou/uL (130-400); RBC Distribution Width 12.1 % (11.5-14.5); Red Blood Cell (RBC) Count 4.11 mill/uL (4.20-5.40); White Blood Cell (WBC) Count 8.2 thou/uL (4.8-10.8)
[2017-09-18 05:13] LABS: Anion Gap 15 mmol/L (10-20); BUN (Urea Nitrogen) 15 mg/dL (9.8-20.1); Calc. Creatinine Clearance 83 mL/min (70-130); Calcium 8.9 mg/dL (7.8-10.44); Carbon Dioxide 19 mmol/L (23-31); Chloride 102 mmol/L (98-107); Estimated GFR-MDRD 83; Glucose 116 mg/dL (80-115); Magnesium 1.5 mg/dL (1.6-2.6); Phosphorus 4.5 mg/dL (2.3-4.7); Potassium 3.4 mmol/L (3.5-5.1); Sodium 133 mmol/L (136-145)
[2017-09-18] MEDS: risperiDONE 0.25 MG TAB PO SCH ×2 (08:42→20:51)
[2017-09-18] MEDS: Donepezil HCl 5 MG TAB PO SCH (08:42)
[2017-09-18] MEDS: Hydrochlorothiazide 25 MG TAB PO SCH (08:42)
[2017-09-18] MEDS: Primidone 50 MG TAB PO SCH ×2 (08:42→20:51)
[2017-09-18] MEDS: Enoxaparin Sodium 40 MG/0.4 ML SYRINGE SC SCH (08:42)
[2017-09-18] MEDS: Lisinopril 20 MG TAB PO SCH (08:42)
--- NOTE | 2017-09-18 09:39 | PDOC.PN ---
- Subjective Encounter Start Date: 09/18/17 Encounter Start Time: 14:15 Subjective: Patient a bit agitated after PEG placement. No better with Ativan, so gave -: a very small dose of Morphine. Now sleeping. - Objective MAR Reviewed: Yes Vital Signs & Weight: Vital Signs (12 hours) Temp Pulse Resp BP BP BP Pulse Ox 09/18/17 08:42 202/110 H 09/18/17 08:00 98.3 F 104 H 20 09/18/17 07:30 98.3 F 104 H 20 193/111 H 96 09/18/17 03:24 97.0 F L 89 15 128/64 94 L 09/18/17 00:31 97.4 F L 100 15 138/76 94 L Weight Admit Weight 104 lb 15.04 oz Weight 146 lb 11 oz Most Recent Monitor Data Heart Rate from ECG 94 NIBP 166/100 NIBP BP-Mean 127 Respiration from ECG 28 SpO2 98 I&O: 09/17/17 09/18/17 09/19/17 06:59 06:59 06:59 Intake Total 900 1830 Balance 900 1830 Result Diagrams: 09/18/17 04:26 09/18/17 04:26 Additional Labs: Accuchecks 09/18/17 09/17/17 09/17/17 00:29 16:07 10:22 POC Glucose 117 H 143 H 139 H Phys Exam - Physical Examination Constitutional: NAD HEENT: moist MMs Respiratory: no wheezing, no rales, no rhonchi Cardiovascular: RRR, no significant murmur Gastrointestinal: soft, positive bowel sounds moves right arm well Deviation from normal: Sleeping Dx/Plan (1) Acute encephalopathy Code(s): G93.40 - ENCEPHALOPATHY, UNSPECIFIED Status: Acute Comment: improving very slightly, likely related to progressive dementia (2) DM type 2 (diabetes mellitus, type 2) Status: Chronic Qualifiers: Diabetes mellitus rn long term care insulin use: without rn long term care use Diabetes mellitus complication status: with unspecified complications Qualified Code(s) : E11.8 - Type 2 diabetes mellitus with unspecified complications Comment: holding metformin, ISS for now (3) HTN (hypertension) Code(s): I10 - ESSENTIAL (PRIMARY) HYPERTENSION Status: Chronic Qualifiers: Hypertension type: essential hypertension Qualified Code(s): I10 - Essential (primary) hypertension Comment: Uncontrolled, unable to take po Lisinopril. Will add IV hydralazine as needed. Restart oral meds as swallow allows. Will add HCTZ to the lisinopril as well. (4) Hemiparesis due to old cerebrovascular accident Code(s): I69.359 - HEMIPLGA FOLLOWING CEREBRAL INFARCTION AFFECTING UNSP SIDE Status: Chronic Comment: left hemiplegia (5) Dysphagia Code(s): R13.10 - DYSPHAGIA, UNSPECIFIED Status: Acute Qualifiers: Dysphagia type: unspecified Qualified Code(s): R13.10 - Dysphagia, unspecified Comment: multifactoral, PEG this AM - Plan cont current plan of care, PT/OT Arranging home health, plan on d/c when able to give food/meds with PEG * . - Discharge Day Encounter end time: 14:30
[2017-09-18] MEDS ORDERED: PROPOFOL 20 ML ONE ×2 (09:45)
[2017-09-18] MEDS ORDERED: CEFAZOLIN/Water 2 GM/20 ML SYRINGE ONE (11:21)
[2017-09-18] MEDS: Lorazepam 2 MG/ML VIAL SLOW IVP PRN (12:32)
[2017-09-18] MEDS ORDERED: CEFAZOLIN/Water 2 GM/20 ML SYRINGE SLOW IVP SCH (12:45)
--- NOTE | 2017-09-18 13:22 | OP ---
PREOPERATIVE DIAGNOSIS: Oropharyngeal dysphagia. DESCRIPTION OF PROCEDURE: After informed consent was obtained, the patient placed in the left latera l decubitus position. Anesthesia was administered per the Anesthesia Department. Forward viewing en doscope was inserted into esophagus under direct visualization with ease and passed to the second por tion of the duodenum with ease. No mucosal abnormalities were noted. The area was prepped and drape d in usual manner. Anesthesia was applied with 1% lidocaine without epinephrine. A needle was inser rosa through the abdominal wall into the gastric lumen on the first pass. A wire was passed, snared, and brought out of the mouth after a small incision was made. Reinsertion of the endoscope showed th e peg bumper to be in good position. ASSESSMENT: Successful percutaneous endoscopic gastrostomy. RECOMMENDATIONS: Begin tube feedings in 8 hours.
[2017-09-18] MEDS ORDERED: Morphine 5 MG/ML SYRINGE SLOW IVP PRN (13:36)
[2017-09-18] MEDS ORDERED: PROPOFOL 200 MG/20 ML VIAL ONE (15:18)
[2017-09-18] MEDS: Labetalol HCl 100 MG/20 ML VIAL SLOW IVP PRN ×2 (15:57→21:26)
[2017-09-18] MEDS: Acetaminophen 650 MG Suppository PR PRN (16:02)
[2017-09-18] MEDS: Atorvastatin Calcium 40 MG TAB PO SCH (20:51)
[2017-09-19 05:05] LABS: #Eosinphils 0.3 thou/uL (0.0-0.7); #Lymphocytes 1.4 thou/uL (1.20-3.40); #Monocytes 1.2 thou/uL (0.11-0.59); #Neutrophils 7.4 thou/uL (1.40-6.50); %Basophils 0.4 % (0.0-1.0); %Lymphocytes 13.7 % (21.0-51.0); %Monocytes 11.7 % (0.0-10.0); %Neutrophils 71.2 % (42.0-75.0); Hemoglobin 11.5 g/dL (12.0-16.0); Mean Corpuscular HGB CONC 34.1 g/dL (32.0-36.0); Mean Corpuscular Hemoglobin 29.2 pg (27.0-31.0); Mean Corpuscular Volume 85.8 fl (81.0-99.0); Mean Platelet Volume 7.7 fL (7.4-10.4); Platelet Count 308 thou/uL (130-400); RBC Distribution Width 12.1 % (11.5-14.5); Red Blood Cell (RBC) Count 3.92 mill/uL (4.20-5.40); White Blood Cell (WBC) Count 10.5 thou/uL (4.8-10.8)
[2017-09-19 05:32] LABS: Anion Gap 14 mmol/L (10-20); BUN (Urea Nitrogen) 14 mg/dL (9.8-20.1); Calc. Creatinine Clearance 83 mL/min (70-130); Calcium 8.5 mg/dL (7.8-10.44); Carbon Dioxide 19 mmol/L (23-31); Chloride 103 mmol/L (98-107); Estimated GFR-MDRD 83; Glucose 172 mg/dL (80-115); Magnesium 1.4 mg/dL (1.6-2.6); Phosphorus 3.6 mg/dL (2.3-4.7); Potassium 3.3 mmol/L (3.5-5.1); Sodium 133 mmol/L (136-145)
[2017-09-19] MEDS: Donepezil HCl 5 MG TAB PO SCH (08:49)
[2017-09-19] MEDS: Primidone 50 MG TAB PO SCH ×2 (08:49→21:08)
[2017-09-19] MEDS: Lisinopril 20 MG TAB PO SCH (08:49)
[2017-09-19] MEDS: risperiDONE 0.25 MG TAB PO SCH ×2 (08:50→21:08)
[2017-09-19] MEDS: Sodium Chloride 0.45% 1,000 ML IV SCH (08:50)
[2017-09-19] MEDS: Hydrochlorothiazide 25 MG TAB PO SCH (08:50)
[2017-09-19] MEDS: Enoxaparin Sodium 40 MG/0.4 ML SYRINGE SC SCH (08:50)
--- NOTE | 2017-09-19 10:16 | PDOC.PN ---
- Subjective Encounter Start Date: 09/19/17 Encounter Start Time: 07:20 Pt seen for followup re: acute encephalopathy. Nonverbal, unable to complete ROS. - Objective MAR Reviewed: Yes Vital Signs & Weight: Vital Signs (12 hours) Temp Pulse Resp BP BP BP Pulse Ox 09/19/17 08:49 182/92 H 09/19/17 08:00 99.4 F 94 18 148/90 H 93 L 09/19/17 04:00 98.7 F 97 22 H 127/70 92 L 09/19/17 00:00 98.7 F 92 20 160/96 H 96 Weight Admit Weight 104 lb 15.04 oz Weight 146 lb 11 oz Most Recent Monitor Data Heart Rate from ECG 94 NIBP 166/100 NIBP BP-Mean 127 Respiration from ECG 28 SpO2 98 I&O: 09/18/17 09/19/17 09/20/17 06:59 06:59 06:59 Intake Total 1830 3102 Balance 1830 3102 Result Diagrams: 09/19/17 04:25 09/19/17 04:25 Additional Labs: Accuchecks 09/19/17 09/19/17 09/18/17 06:17 00:20 17:11 POC Glucose 163 H 153 H 114 H EKG Reviewed by me: Yes (Tele: NSR) Phys Exam - Physical Examination Constitutional: NAD HEENT: moist MMs Respiratory: clear to auscultation bilateral Cardiovascular: RRR Gastrointestinal: soft G-tube + RUE tremor, L hemiplegia Deviation from normal: Unable to assess Dx/Plan (1) Acute encephalopathy Code(s): G93.40 - ENCEPHALOPATHY, UNSPECIFIED Status: Acute Comment: ? due to dementia (2) Dysphagia Code(s): R13.10 - DYSPHAGIA, UNSPECIFIED Status: Acute Qualifiers: Dysphagia type: unspecified Qualified Code(s): R13.10 - Dysphagia, unspecified Comment: s/p PEG tube (3) DM type 2 (diabetes mellitus, type 2) Status: Chronic Qualifiers: Diabetes mellitus lobsterman insulin use: without residential use Diabetes mellitus complication status: with unspecified complications Qualified Code(s) : E11.8 - Type 2 diabetes mellitus with unspecified complications Comment: Continue accuchecks, insulin sliding scale (4) HTN (hypertension) Code(s): I10 - ESSENTIAL (PRIMARY) HYPERTENSION Status: Chronic Qualifiers: Hypertension type: essential hypertension Qualified Code(s): I10 - Essential (primary) hypertension Comment: Continue PRN IV hydralazine and PRN IV labetalol. Monitor vital signs , titrate antihypertensives as needed (5) Hemiparesis due to old cerebrovascular accident Code(s): I69.359 - HEMIPLGA FOLLOWING CEREBRAL INFARCTION AFFECTING UNSP SIDE Status: Chronic Comment: L hemiplegia (6) Focal seizure Status: Suspected - Plan PT/OT * . Review of Systems - Medications/Allergies Allergies/Adverse Reactions: Allergies Allergy/AdvReac Type Severity Reaction Status Date / Time prochlorperazine Allergy Verified 09/14/17 05:47 [From Compazine] Medications: Current Medications Acetaminophen (Tylenol) 650 mg PO Q4H PRN PRN Reason: Headache/Fever or Pain Last Admin: 09/16/17 10:54 Dose: 650 mg Acetaminophen (Tylenol) 650 mg [place] Q4H PRN PRN Reason: Headache/Fever or Pain Last Admin: 09/18/17 16:02 Dose: 650 mg Atorvastatin Calcium (Lipitor) 80 mg PO HS [facility] Last Admin: 09/18/17 20:51 Dose: 80 mg Cefazolin Sodium (Ancef) 2 gm SLOW IVP [facility]CALL CARLOS Stop: 09/19/17 12:46 Dextrose/Water (Dextrose 50%) 25 gm SLOW IVP PRN PRN PRN Reason: Hypoglycemia Donepezil HCl (Aricept) 5 mg PO DAILY [facility] Last Admin: 09/19/17 08:49 Dose: 5 mg Enoxaparin Sodium (Lovenox) 40 mg SC 0900 [facility] Last Admin: 09/19/17 08:50 Dose: 40 mg Glucagon (Glucagon) 1 mg IM PRN PRN PRN Reason: Hypoglycemia Hydralazine HCl (Apresoline) 10 mg SLOW IVP Q4H PRN PRN Reason: Hypertension Last Admin: 09/17/17 15:59 Dose: 10 mg Hydrochlorothiazide (Hydrochlorothiazide) 12.5 mg PO DAILY [facility] Last Admin: 09/19/17 08:50 Dose: 12.5 mg Dextrose/Water (D5w) 1,000 mls @ 0 mls/hr IV .Q0M PRN; As Directed PRN Reason: Hypoglycemia Levetiracetam 500 mg/ Device 100 mls @ 200 mls/hr IVPB BID [facility] Last Admin: 09/19/17 08:49 Dose: 100 mls Sodium Chloride (1/2 Normal Saline) 1,000 mls @ 70 mls/hr IV .[id number] [facility] Last Admin: 09/19/17 08:50 Dose: 1,000 mls Insulin Human Lispro (Humalog) 0 units SC .MILD SLIDING SCALE PRN PRN Reason: Mild Correctional Scale Insulin Human Lispro (Humalog) 0 units SC .BEDTIME SLIDING SC PRN PRN Reason: Bedtime Correctional Scale Labetalol HCl (Normodyne) 20 mg SLOW IVP Q10MIN PRN PRN Reason: SBP Greater Than 180 Last Admin: 09/18/17 21:26 Dose: 20 mg Lisinopril (Zestril) 40 mg PO DAILY [facility] Last Admin: 09/19/17 08:49 Dose: 40 mg Lorazepam (Ativan) 1 mg SLOW IVP Q4H PRN PRN Reason: tremors Last Admin: 09/18/17 12:32 Dose: 1 mg Morphine Sulfate (Morphine) 2 mg SLOW IVP Q3H PRN PRN Reason: Pain Last Admin: 09/18/17 13:45 Dose: 2 mg Primidone (Mysoline) 50 mg PO BID [facility] Last Admin: 09/19/17 08:49 Dose: 50 mg Risperidone (Risperidone) 0.5 mg PO BID [facility] Last Admin: 09/19/17 08:50 Dose: 0.5 mg Sodium Chloride (Flush - Normal Saline) 10 ml IVF Q12HR [facility] Last Admin: 09/19/17 08:50 Dose: Not Given Sodium Chloride (Flush - Normal Saline) 10 ml IVF PRN PRN PRN Reason: Saline Flush Last Admin: 09/17/17 08:38 Dose: 10 ml
--- NOTE | 2017-09-19 10:22 | PRG ---
DATE OF SERVICE: 09/19/2017 SUBJECTIVE: The patient is not complaining of any particular problems. No reported problems per the nursing personnel. OBJECTIVE: VITAL SIGNS: Temperature 99.4, pulse 94, respiratory rate 18, blood pressure 182/92. CHEST: Clear. CARDIOVASCULAR: Regular rate and rhythm. ABDOMEN: Soft, nontender. PEG site looks good. The bumper was adjusted. LABORATORY DATA: Shows white blood cell count of 10.5, hemoglobin 11.5, hematocrit 33.7. Chemistry shows sodium 133, potassium 3.3, CO2 19, glucose 172. ASSESSMENT: Oropharyngeal dysphagia - status post percutaneous endoscopic gastrostomy. RECOMMENDATIONS: 1. Discussed PEG management with family members. 2. Stable for discharge from GI standpoint. 3. We will sign off.
[2017-09-19] MEDS: Labetalol HCl 100 MG/20 ML VIAL SLOW IVP PRN (21:07)
[2017-09-19] MEDS: Atorvastatin Calcium 40 MG TAB PO SCH (21:08)
[2017-09-19] MEDS: Acetaminophen 325 MG TAB PO PRN (21:08)
[2017-09-20] MEDS: Sodium Chloride 0.45% 1,000 ML IV SCH ×2 (01:54→12:06)
[2017-09-20] MEDS: Lorazepam 2 MG/ML VIAL SLOW IVP PRN (03:34)
[2017-09-20 05:51] LABS: #Eosinphils 0.2 thou/uL (0.0-0.7); #Lymphocytes 1.1 thou/uL (1.20-3.40); #Monocytes 0.9 thou/uL (0.11-0.59); #Neutrophils 5.1 thou/uL (1.40-6.50); %Basophils 0.7 % (0.0-1.0); %Eosinophils 3.2 % (0.0-10.0); %Lymphocytes 15.4 % (21.0-51.0); %Monocytes 11.8 % (0.0-10.0); Hemoglobin 11.4 g/dL (12.0-16.0); Mean Corpuscular HGB CONC 33.2 g/dL (32.0-36.0); Mean Corpuscular Hemoglobin 29.2 pg (27.0-31.0); Mean Corpuscular Volume 87.9 fl (81.0-99.0); Platelet Count 283 thou/uL (130-400); Red Blood Cell (RBC) Count 3.92 mill/uL (4.20-5.40); White Blood Cell (WBC) Count 7.4 thou/uL (4.8-10.8)
[2017-09-20 06:03] LABS: Anion Gap 13 mmol/L (10-20); BUN (Urea Nitrogen) 15 mg/dL (9.8-20.1); Calc. Creatinine Clearance 82 mL/min (70-130); Calcium 9.2 mg/dL (7.8-10.44); Carbon Dioxide 24 mmol/L (23-31); Chloride 101 mmol/L (98-107); Estimated GFR-MDRD 81; Glucose 221 mg/dL (80-115); Magnesium 1.4 mg/dL (1.6-2.6); Phosphorus 3.7 mg/dL (2.3-4.7); Potassium 3.7 mmol/L (3.5-5.1); Sodium 134 mmol/L (136-145)
[2017-09-20] MEDS: Primidone 50 MG TAB PO SCH ×2 (08:43→22:13)
[2017-09-20] MEDS: Hydrochlorothiazide 25 MG TAB PO SCH (08:43)
[2017-09-20] MEDS: Lisinopril 20 MG TAB PO SCH (08:43)
[2017-09-20] MEDS: risperiDONE 0.25 MG TAB PO SCH (08:43)
[2017-09-20] MEDS: Enoxaparin Sodium 40 MG/0.4 ML SYRINGE SC SCH (08:43)
[2017-09-20] MEDS: Donepezil HCl 5 MG TAB PO SCH (08:43)
--- NOTE | 2017-09-20 09:46 | PDOC.PN ---
- Subjective Encounter Start Date: 09/20/17 Encounter Start Time: 07:20 Pt seen for followup re: acute encephalopathy. Awake and alert, denies chest pain, shortness of breath, fevers or chills. - Objective MAR Reviewed: Yes Vital Signs & Weight: Vital Signs (12 hours) Temp Pulse Resp BP BP Pulse Ox 09/20/17 08:43 188/110 H 09/20/17 08:00 98.2 F 88 18 97 09/20/17 04:35 98.4 F 76 20 152/114 H 95 09/20/17 00:45 97.9 F 80 20 151/83 H 95 09/19/17 21:50 142/78 H Weight Admit Weight 104 lb 15.04 oz Weight 146 lb 11 oz Most Recent Monitor Data Heart Rate from ECG 94 NIBP 166/100 NIBP BP-Mean 127 Respiration from ECG 28 SpO2 98 I&O: 09/19/17 09/20/17 09/21/17 06:59 06:59 06:59 Intake Total 3102 3643 Balance 3102 3643 Result Diagrams: 09/20/17 05:02 09/20/17 05:02 Additional Labs: Accuchecks 09/20/17 09/20/17 09/19/17 06:36 01:52 17:17 POC Glucose 187 H 156 H 166 H 09/19/17 10:47 POC Glucose 165 H EKG Reviewed by me: Yes (Tele: NSR) Phys Exam - Physical Examination Constitutional: NAD HEENT: moist MMs Neck: supple Respiratory: clear to auscultation bilateral Cardiovascular: RRR Gastrointestinal: soft Musculoskeletal: no edema L hemiplegia Psychiatric: normal affect Dx/Plan (1) Acute encephalopathy Code(s): G93.40 - ENCEPHALOPATHY, UNSPECIFIED Status: Acute Comment: Improving (2) Dysphagia Code(s): R13.10 - DYSPHAGIA, UNSPECIFIED Status: Acute Qualifiers: Dysphagia type: unspecified Qualified Code(s): R13.10 - Dysphagia, unspecified Comment: s/p PEG tube, consult [facility] [facility] for swallow eval (3) DM type 2 (diabetes mellitus, type 2) Status: Chronic Qualifiers: Diabetes mellitus medical terminologist insulin use: without shelter use Diabetes mellitus complication status: with unspecified complications Qualified Code(s) : E11.8 - Type 2 diabetes mellitus with unspecified complications Comment: accuchecks, insulin sliding scale (4) HTN (hypertension) Code(s): I10 - ESSENTIAL (PRIMARY) HYPERTENSION Status: Chronic Qualifiers: Hypertension type: essential hypertension Qualified Code(s): I10 - Essential (primary) hypertension Comment: Monitor vital signs, titrate antihypertensives as needed (5) Hemiparesis due to old cerebrovascular accident Code(s): I69.359 - HEMIPLGA FOLLOWING CEREBRAL INFARCTION AFFECTING UNSP SIDE Status: Chronic Comment: L hemiplegia (6) Focal seizure Status: Suspected - Plan plan discussed w/ family, PT/OT, speech therapy * . Review of Systems - Review of Systems Respiratory: negative: Cough, Dry, Shortness of Breath, Hemoptysis, SOB with Excertion, Pleuritic Pain, Sputum, Wheezing Cardiovascular: negative: chest pain, palpitations, orthopnea, paroxysmal nocturnal dyspnea, edema, light headedness - Medications/Allergies Allergies/Adverse Reactions: Allergies Allergy/AdvReac Type Severity Reaction Status Date / Time prochlorperazine Allergy Verified 09/14/17 05:47 [From Compazine] Medications: Current Medications Acetaminophen (Tylenol) 650 mg PO Q4H PRN PRN Reason: Headache/Fever or Pain Last Admin: 09/19/17 21:08 Dose: 650 mg Acetaminophen (Tylenol) 650 mg W[place] Q4H PRN PRN Reason: Headache/Fever or Pain Last Admin: 09/18/17 16:02 Dose: 650 mg Atorvastatin Calcium (Lipitor) 80 mg PO HS [facility] Last Admin: 09/19/17 21:08 Dose: 80 mg Dextrose/Water (Dextrose 50%) 25 gm SLOW IVP PRN PRN PRN Reason: Hypoglycemia Donepezil HCl (Aricept) 5 mg PO DAILY [facility] Last Admin: 09/20/17 08:43 Dose: 5 mg Enoxaparin Sodium (Lovenox) 40 mg SC 0900 [facility] Last Admin: 09/20/17 08:43 Dose: 40 mg Glucagon (Glucagon) 1 mg IM PRN PRN PRN Reason: Hypoglycemia Hydralazine HCl (Apresoline) 10 mg SLOW IVP Q4H PRN PRN Reason: Hypertension Last Admin: 09/17/17 15:59 Dose: 10 mg Hydrochlorothiazide (Hydrochlorothiazide) 12.5 mg PO DAILY [facility] Last Admin: 09/20/17 08:43 Dose: 12.5 mg Dextrose/Water (D5w) 1,000 mls @ 0 mls/hr IV .Q0M PRN; As Directed PRN Reason: Hypoglycemia Levetiracetam 500 mg/ Device 100 mls @ 200 mls/hr IVPB BID [facility] Last Admin: 09/20/17 08:42 Dose: 100 mls Sodium Chloride (1/2 Normal Saline) 1,000 mls @ 70 mls/hr IV .[id number] [facility] Last Admin: 09/20/17 01:54 Dose: 1,000 mls Insulin Human Lispro (Humalog) 0 units SC .MILD SLIDING SCALE PRN PRN Reason: Mild Correctional Scale Insulin Human Lispro (Humalog) 0 units SC .BEDTIME SLIDING SC PRN PRN Reason: Bedtime Correctional Scale Labetalol HCl (Normodyne) 20 mg SLOW IVP Q10MIN PRN PRN Reason: SBP Greater Than 180 Last Admin: 09/19/17 21:07 Dose: 20 mg Lisinopril (Zestril) 40 mg PO DAILY [facility] Last Admin: 09/20/17 08:43 Dose: 40 mg Lorazepam (Ativan) 1 mg SLOW IVP Q4H PRN PRN Reason: tremors Last Admin: 09/20/17 03:34 Dose: 1 mg Morphine Sulfate (Morphine) 2 mg SLOW IVP Q3H PRN PRN Reason: Pain Last Admin: 09/18/17 13:45 Dose: 2 mg Primidone (Mysoline) 50 mg PO BID [facility] Last Admin: 09/20/17 08:43 Dose: 50 mg Sodium Chloride (Flush - Normal Saline) 10 ml IVF Q12HR [facility] Last Admin: 09/20/17 08:44 Dose: Not Given Sodium Chloride (Flush - Normal Saline) 10 ml IVF PRN PRN PRN Reason: Saline Flush Last Admin: 09/17/17 08:38 Dose: 10 ml
[2017-09-20] MEDS: Acetaminophen 650 MG Suppository PR PRN (15:01)
[2017-09-20] MEDS: Atorvastatin Calcium 40 MG TAB PO SCH (22:12)
[2017-09-21] MEDS: Sodium Chloride 0.45% 1,000 ML IV SCH (05:43)
[2017-09-21 05:54] LABS: #Basophils 0.1 thou/uL (0.0-0.2); #Eosinphils 0.3 thou/uL (0.0-0.7); #Lymphocytes 1.8 thou/uL (1.20-3.40); #Monocytes 1.1 thou/uL (0.11-0.59); #Neutrophils 5.6 thou/uL (1.40-6.50); %Basophils 0.7 % (0.0-1.0); %Eosinophils 3.4 % (0.0-10.0); %Lymphocytes 20.6 % (21.0-51.0); %Neutrophils 63.4 % (42.0-75.0); Hemoglobin 11.9 g/dL (12.0-16.0); Mean Corpuscular HGB CONC 32.8 g/dL (32.0-36.0); Mean Corpuscular Volume 85.5 fl (81.0-99.0); Mean Platelet Volume 8.5 fL (7.4-10.4); Platelet Count 344 thou/uL (130-400); RBC Distribution Width 12.2 % (11.5-14.5); Red Blood Cell (RBC) Count 4.26 mill/uL (4.20-5.40); White Blood Cell (WBC) Count 8.8 thou/uL (4.8-10.8)
[2017-09-21 06:09] LABS: Anion Gap 16 mmol/L (10-20); BUN (Urea Nitrogen) 18 mg/dL (9.8-20.1); Calc. Creatinine Clearance 81 mL/min (70-130); Calcium 9.9 mg/dL (7.8-10.44); Carbon Dioxide 26 mmol/L (23-31); Chloride 96 mmol/L (98-107); Estimated GFR-MDRD 80; Glucose 212 mg/dL (80-115); Magnesium 1.6 mg/dL (1.6-2.6); Phosphorus 4.2 mg/dL (2.3-4.7); Potassium 4.3 mmol/L (3.5-5.1); Sodium 134 mmol/L (136-145)
[2017-09-21] MEDS: Hydrochlorothiazide 25 MG TAB PO SCH (08:36)
[2017-09-21] MEDS: Primidone 50 MG TAB PO SCH (08:36)
[2017-09-21] MEDS: Enoxaparin Sodium 40 MG/0.4 ML SYRINGE SC SCH (08:36)
[2017-09-21] MEDS: HumaLOG 300 UNITS/3 ML VIAL SC PRN ×2 (08:37→11:25)
[2017-09-21] MEDS: Donepezil HCl 5 MG TAB PO SCH (08:37)
[2017-09-21] MEDS: Lisinopril 20 MG TAB PO SCH (08:37)
[2017-09-21] MEDS ORDERED: Gentamicin Ophth Soln 0.3% 5 ml Bottle R EYE SCH (13:00)
[2017-09-21 13:09] VITALS: BP 160/90; TEMP 97.9
--- NOTE | 2017-09-21 14:46 | DIS ---
PRIMARY CARE PHYSICIAN: Dr. Onesimo Johnson DATE OF ADMISSION: 09/13/2017 DATE OF DISCHARGE: 09/21/2017 DISCHARGE DIAGNOSES: 1. Acute encephalopathy. 2. Right upper extremity tremor. 3. Oropharyngeal dysphagia. 4. Acute right conjunctivitis. CONSULTATIONS DURING THIS HOSPITALIZATION: Critical Care Medicine, Dr. Rudolph , Gastroenterology, Dr. Jaime Kim and Neurology, Dr. Oanh De Los Santos. CONDITION OF PATIENT ON THE DAY OF DISCHARGE: Stable. I assessed Ms. Little on the day of discharge. She denies any chest pain or shortness of breath. Vital signs are stable. She has right conjunctival erythema, with mildly purulent discharge. Vision is preserved in both eyes. S1 and S2 are heard, regular. Lungs are clear to auscultation bilaterally. HOSPITAL COURSE: Ms. Little is a pleasant 67-year-old lady who was admitted to [facility] on 09/13/2017 for acute encephalopathy. This was in the context of recently being started on Risperdal and gabapentin. These medications were discontinued. She also had tremors of the right upper extremity. She was seen by Neurology Service. She had an EEG done, which did not show any epileptiform discharges or shock transients. It was felt that her tremors were likely essential tremors. She has been started on primidone during this hospitalization. She was seen by Gastroenterology Service for oropharyngeal dysphagia and underwent PEG tube placement on 09/18/2017. She has been started on Glucerna feeds. She has also received a prescription for a deangelo-electric hospital bed, wheelchair and Glucerna. Her encephalopathy improved. By the day of discharge, she was holding conversations. On the day of discharge, she had sodium of 134, potassium 4.3, creatinine 0.73, normal white count, hemoglobin 11.9 and normal platelet count. Many thanks for allowing me to participate in your patient's care. Please feel free to contact me with any questions or concerns. I should note that she had an abnormal prolactin level of 85.81 during this hospitalization. DISCHARGE MEDICATIONS: Flexeril 10 mg 2 times a day, Aricept 5 mg daily, gentamicin sulfate 1 drop to right eye every 4 hours, lisinopril 40 mg daily, metformin 1000 mg 2 times a day, Primidone 50 mg 2 times a day, rosuvastatin 40 mg at bedtime. I should note that the gentamicin eyedrops were started on the day of discharge because she was noted to have right eye conjunctivitis. DISCHARGE DESTINATION: Home. TOTAL AMOUNT OF TIME SPENT COORDINATING THIS DISCHARGE: 38 minutes. MONIE
--- NOTE | 2017-09-22 10:26 | EEG ---
Referring Physician: DR. KAMRAN PARSONS EEG # [id number] TEST TYPE: ROUTINE PORTABLE INPATIENT REASON FOR EEG: PERSISTENT RIGHT HAND TREMOR DATE OF EE09/14/2017 EEG DESCRIPTION: This is a 21 channel digital EEG recording. Electrodes are placed using the international ten-twenty international electrode placement system. The background rhythm is predominately 4-5 hertz, medium voltage, theta rhythm. There are also periods of 2-3 hertz, low to medium voltage, intermittent, diffuse delta rhythm. There appears to be periods of drowsiness. There are also triphasic waves present intermittently. The patient is noted to have a persistent right hand tremor throughout the recording of this EEG which did not show any signs of epileptiform discharges, asymmetry or sharp transients. HYPERVENTILATION: Could not be done. PHOTIC STIMULATION: Showed not effect. There are no epileptiform discharges, sharp transients or asymmetry noted. IMPRESSION: THIS IS AN ABNORMAL EEG. IT SHOWS MILD TO MODERATE NONSPECIFIC CEREBRAL DYSFUNCTION. HER RIGHT HAND TREMORS DID NOT CORRELATE WITH ANY EPILEPTIFORM DISCHARGES, SHARP TRANSIENTS OR ASYMMETRY. THIS WOULD ARGUE AGAINST SEIZURES THE CAUSE FOR HER TREMORS. MILD TO MODERATE NONSPECIFIC CEREBRAL DYSFUNCTION COULD BE SECONDARY TO TOXIC METABOLIC ENCEPHALOPATHY, UNDERLYING DEMENTIA . PLEASE CORRELATE THESE FINDINGS CLINICALLY. Administrative Support Assistant: [employer] Supervisor: EEG.MSBrad LOMAX
--- NOTE | 2017-10-10 01:25 | EKG ---
Test Reason : AMS Blood Pressure : / mmHG Vent. Rate : 125 BPM Atrial Rate : 125 BPM P-R Int : 142 ms QRS Dur : 130 ms QT Int : 288 ms P-R-T Axes : -28 247 -47 degrees QTc Int : 415 ms Sinus tachycardia Right bundle branch block Inferior infarct , age undetermined T wave abnormality, consider lateral ischemia Abnormal ECG Confirmed by CHING ASHRAF, RACQUEL ([id number]), online editor DEVANTE SAM ([id number]) on 10/10/2017 1:25:28 AM Referred By: KARON FLOWER Confirmed By:RACQUEL FLOWER MD
== END 2017-09-21 15:09 | disposition home or self-care (01) | DRG 92 ==
LOC: ERS 14:50 → CCU 20:07 → 2SE 09-14 17:03
PROVIDERS: ADMIT Internal Medicine; ATTEND Internal Medicine
PROC: 0DH63UZ Insertion of Feeding Device into Stomach, Percutaneous Approach (ICD-10-PCS; principal; 2017-09-18)
DX: G92 Toxic encephalopathy (principal); I16.1 Hypertensive emergency; I69.254 Hemiplegia and hemiparesis following other nontraumatic intracranial hemorrhage affecting left non-dominant side; R13.12 Dysphagia, oropharyngeal phase; F03.90 Unspecified dementia, unspecified severity, without behavioral disturbance, psychotic disturbance, mood disturbance, and anxiety; G25.0 Essential tremor; H10.31 Unspecified acute conjunctivitis, right eye; E11.9 Type 2 diabetes mellitus without complications; I10 Essential (primary) hypertension; I69.322 Dysarthria following cerebral infarction; I69.391 Dysphagia following cerebral infarction; Z88.8 Allergy status to other drugs, medicaments and biological substances; Z79.84 Long term (current) use of oral hypoglycemic drugs; Z79.899 Other long term (current) drug therapy; T43.595A Adverse effect of other antipsychotics and neuroleptics, initial encounter; T42.6X5A Adverse effect of other antiepileptic and sedative-hypnotic drugs, initial encounter
CPT/HCPCS: 36415; 36416; 80048; 80053; 80306; 82550; 83735; 84100; 84146; 84443; 85025; 93005; 95816; 95819; 96365; 96366; J2270; A4216; G8978-GP-CN; G8979-GP-CL; G8987-GO-CN; G8988-GO-CM; G8996-GN-CN; G8997-GN-CI; J0360; J1650; J1953; J2060; J2704; J7050

== ENCOUNTER 2018-12-28 12:22 | Inpatient (IN) | payer MEDICARE ==
[2018-12-28 13:43] LABS: #Basophils 0.1 thou/uL (0.0-0.2); #Eosinphils 0.1 thou/uL (0.0-0.7); #Lymphocytes 2.2 thou/uL (1.20-3.40); #Monocytes 0.9 thou/uL (0.11-0.59); #Neutrophils 12.1 thou/uL (1.40-6.50); %Basophils 0.6 % (0.0-1.0); %Eosinophils 0.9 % (0.0-10.0); %Lymphocytes 14.3 % (21.0-51.0); %Monocytes 6.1 % (0.0-10.0); Hemoglobin 15.1 g/dL (12.0-16.0); Mean Corpuscular HGB CONC 32.1 g/dL (32.0-36.0); Mean Corpuscular Hemoglobin 27.6 pg (27.0-31.0); Mean Corpuscular Volume 85.9 fL (78.0-98.0); Mean Platelet Volume 7.8 fL (7.4-10.4); Platelet Count 454 thou/uL (130-400); RBC Distribution Width 14.3 % (11.5-14.5); Red Blood Cell (RBC) Count 5.48 mill/uL (4.20-5.40); White Blood Cell (WBC) Count 15.5 thou/uL (4.8-10.8)
[2018-12-28 14:06] LABS: ALT (SGPT) 23 U/L (8-55); AST (SGOT) 24 U/L (5-34); Albumin 4.6 g/dL (3.4-4.8); Alkaline Phosphatase 112 U/L (40-150); Anion Gap 29 mmol/L (10-20); BUN (Urea Nitrogen) 67 mg/dL (9.8-20.1); Bilirubin, Total 0.3 mg/dL (0.2-1.2); Calc. Creatinine Clearance 0 mL/min (70-130); Calcium 10.3 mg/dL (7.8-10.44); Carbon Dioxide 15 mmol/L (23-31); Chloride 101 mmol/L (98-107); Estimated GFR-MDRD 33; Globulin 3.7 g/dL (2.4-3.5); Glucose 123 mg/dL (80-115); Potassium 4.5 mmol/L (3.5-5.1); Protein, Total 8.3 g/dL (6.0-8.3); Sodium 140 mmol/L (136-145)
[2018-12-28 15:31] LABS: Bilirubin Small (Negative); Blood, Urine Negative (Negative); Clarity Clear (Clear); Glucose, Urine (Dipstick) Negative (Negative); Leukocyte Negative (Negative); Nitrite Negative (Negative); Protein, Urine (Dipstick) 100 mg/dL (Neg-Trace); Specific Gravity, Urine 1.015 (1.005-1.030); Urobilinogen 0.2 mg/dL (0.2-1.0); pH, Urine 5.5 (5.0-9.0)
[2018-12-28 15:40] LABS: Bacteria/HPF Rare-Few HPF (None Seen); RBC/HPF None Seen HPF (0-3); Squamous Epithelial 0-3 HPF (0-3)
[2018-12-28 15:41] LABS: Hyaline Casts/LPF 4-6 HYALINE CAST LPF (0-3 Hyaline)
--- NOTE | 2018-12-28 17:47 | CT ---
CT ABDOMEN AND PELVIS WITHOUT CONTRAST: 12/28/18 HISTORY: Constipation and abdominal pain. TECHNIQUE: Multiple contiguous axial images were obtained in a CT of the abdomen and pelvis without contrast. C oronal reformats were performed. FINDINGS: The liver, gallbladder, kidneys, adrenal glands, spleen, and pancreas are unremarkable, although eval uation is limited without IV contrast. No free air, free fluid or stranding changes are seen in the abdomen or pelvis. No significant stool retention is seen in the colon. The small bowel is normal in caliber. The patien t is status post hysterectomy. No abdominal or pelvic lymphadenopathy seen. Vascular calcifications are seen in the aorta and mesenteric vasculature. Degenerative changes are seen in the spine. The visualized inferior thorax is unremarkable. There is a well circumscribed mass in the left breast with a central calcification measuring 2.5 cm in size. T his most likely represents a fibroadenoma. IMPRESSION: 1. No evidence of acute intra-abdominal/pelvic abnormality. 2. 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 POS: [facility]
[2018-12-28] MEDS ORDERED: Ondansetron ODT 4 MG TAB SL PRN (18:08)
[2018-12-28] MEDS ORDERED: Ondansetron PF 4 MG/2 ML Vial IVP PRN (18:08)
[2018-12-28] MEDS ORDERED: Sodium Chloride 0.9% 1,000 ML IV SCH ×2 (18:08→23:30)
[2018-12-28 23:10] VITALS: BMI 26.6
[2018-12-28] MEDS ORDERED: Acetaminophen 325 MG TAB PO PRN (23:17)
[2018-12-28] MEDS ORDERED: Bisacodyl 10 MG SUPP PR PRN (23:17)
[2018-12-28] MEDS ORDERED: Insulin Regular 300 UNITS/3 ML VIAL SC PRN ×2 (23:17)
[2018-12-28] MEDS ORDERED: Dextrose 50% Abboject 50 ML SYRINGE SLOW IVP PRN (23:17)
[2018-12-28] MEDS ORDERED: Calcium Carbonate 500 MG ChewTAB PO PRN (23:17)
[2018-12-28] MEDS ORDERED: Dextrose 5% in Water 1,000 ML IV PRN (23:17)
[2018-12-28 23:25] LABS: Anion Gap 26 mmol/L (10-20); BUN (Urea Nitrogen) 56 mg/dL (9.8-20.1); Calc. Creatinine Clearance 48 mL/min (70-130); Calcium 8.6 mg/dL (7.8-10.44); Carbon Dioxide 9 mmol/L (23-31); Chloride 109 mmol/L (98-107); Estimated GFR-MDRD 51; Glucose 84 mg/dL (80-115); Phosphorus 4.7 mg/dL (2.3-4.7); Potassium 4.8 mmol/L (3.5-5.1); Sodium 139 mmol/L (136-145)
--- NOTE | 2018-12-29 00:06 | HP ---
PRIMARY CARE PHYSICIAN: Dr. Jeremy Lal. CHIEF COMPLAINT: Generalized weakness, poor appetite with no bowel movements over the last six days. HISTORY OF PRESENT ILLNESS: The patient is a 68-year-old white female with hypertension; diabetes mellitus, type 2; and dementia, was brought into the hospital by her with altered mentation. Please note that there is no family at the bedside. History is limited from the patient due to underlying dementia. Per ER report, patient has not been eating or drinking well. Primary care physician recently evaluated the patient and added Ensure. She also had a last bowel movement approximately six days ago. No fever or chills reported. She has intermittent confusion. At the time of my evaluation, patient is alert, however, information is limited. In the emergency room, her initial vital signs showed temperature 97.8, respirations of 18, pulse rate of 124 with a blood pressure of 125/66 with O2 saturation 100% on room air. She received 2 L of IV fluids in the emergency room. Her creatinine today was 1.56 with BUN of 67, bicarbonate of 15, and anion gap of 29. Her baseline creatinine last year was 0.73. Urinalysis showed 4 to 6 wbc's with hyaline casts and ketones. She underwent a CT scan of the abdomen and pelvis that was negative for acute intraabdominal or pelvic pathology. PAST MEDICAL HISTORY: 1. Diabetes mellitus, type 2. 2. Hypertension. 3. Dementia. 4. Swallowing dysfunction requiring PEG tube placement in September of 2017. The PEG tube has been removed. 5. Hospitalization for encephalopathy in September 2017. 6. History of CVA in 2002 with left-sided hemiplegia. 7. Residual dysarthria from the stroke. PAST SURGICAL HISTORY: 1. Hysterectomy. 2. Cholecystectomy. 3. . 4. Bladder repair. SOCIAL HISTORY: Patient currently lives at home with her spouse and caregiver. She ambulates with the help of wheelchair. Code status and DPOA need to be verified. ALLERGIES: PATIENT IS ALLERGIC TO PROCHLORPERAZINE. CURRENT HOME MEDICATIONS: Family to provide accurate list of medications. According to recent external medication history, patient takes; 1. Primidone 50 mg twice a day. 2. Hydrochlorothiazide 25 mg daily. 3. Crestor 40 mg daily. 4. Metformin 1000 mg twice a day. 5. Lisinopril 40 mg daily. 6. Aricept 5 mg daily. 7. Flexeril as needed. 8. Amlodipine 5 mg daily. 9. She also was on Bactrim earlier this month for 1 week. REVIEW OF SYSTEMS: Cannot be obtained from the patient due to current cognitive status. FAMILY HISTORY: Patient is adopted per review of previous record. PHYSICAL EXAMINATION: VITAL SIGNS: As discussed above. GENERAL: A 68-year-old female with altered mentation. She appears comfortable. HEENT: Head, atraumatic and normocephalic. Sclerae anicteric. Dry mucous membrane. No oral lesion. NECK: Supple. No JVD appreciated. No carotid bruit. LUNGS: Showed diminished air entry at bilateral bases. No wheezing, rales, or rhonchi. HEART: S1, S2 present. Regular rate and rhythm. No rubs or gallops appreciated. The last heart rate was 97. ABDOMEN: Soft and nontender. Bowel sounds present. No rebound or guarding. No costovertebral angle tenderness. EXTREMITIES: No edema or calf tenderness. NEUROLOGY: Patient has left-sided hemiplegia. She is spontaneously moving her right side. Again, detailed examination was not possible due to altered mentation. PSYCHIATRY: As discussed above. LYMPH NODE: No palpable lymph nodes in the neck. PERIPHERAL VASCULAR: Radial pulses palpable bilaterally. MUSCULOSKELETAL: No joint swelling or tenderness. LABORATORY FINDINGS: WBC 15.5 with 78% neutrophil, hemoglobin 15.1, hematocrit 47.1. Chemistries, as discussed above. LFTs in normal range. Lactic acid 2.0. Urinalysis, as discussed above. Urine drug screen was positive for tricyclics. CT scan of the abdomen and pelvis by my review as discussed above. IMPRESSION: 1. Generalized weakness with metabolic encephalopathy, multifactorial. 2. Acute kidney injury on chronic kidney disease, stage 2 secondary to dehydration. 3. Starvation ketosis. 4. Diabetes mellitus, type 2. 5. Hypertension. 6. Hyperlipidemia. 7. Metabolic acidosis secondary to starvation ketosis. 8. Leukocytosis with 4 to 6 wbc's in the urine, suspected urinary tract infection. We will rule out pneumonia. 9. History of swallow dysfunction requiring PEG tube in 2018. PEG tube was subsequently discontinued. 10. History of cerebrovascular accident with residual left-sided hemiplegia. 11. Dementia. 12. Mild protein-calorie malnutrition. PLAN: Patient will be monitored on the medical floor. Empiric ceftriaxone will be initiated. We will continue IV fluids. We will get chest x-ray. Initiate nutrition supplement protocol. Consult Physical Therapy, Occupational Therapy. Insulin sliding scale. We will hold metformin, lisinopril, and hydrochlorothiazide. We will start amlodipine with holding parameters. Her last blood pressure was 100/65. CT scan did not show any obstructive uropathy. We will add Glucerna. We will recheck labs in a.m. Code status and DPOA need to be verified. Plan of care was discussed with the patient in detail. We will discuss with the family when they arrive. Job ID: [id number]
[2018-12-29] MEDS: Sodium Bicarb 50 MEQ/50 ML VIAL IVP SCH ×2 (00:07→00:27)
--- NOTE | 2018-12-29 00:26 | PDOC.EVN ---
Event Note - Event Note Event Note: Repeat labs - bicarb 9 with elevated ketone. Will start Bicarb drip
[2018-12-29] MEDS: cefTRIAXone\\ROCEPHIN 1 GM in Sodium Chloride 0.9% 100 ML IVPB SCH (00:28)
[2018-12-29] MEDS: Sodium Bicarbonate 150 MEQ in Dextrose 5% in Water 1,000 ML IV SCH ×3 (00:28→11:34)
--- NOTE | 2018-12-29 07:33 | RAD ---
CHEST 1 VIEW: HISTORY: Altered mental status, pneumonia. COMPARISON: 12/06/2018. FINDINGS: Mild bilateral vascular congestion without overt edema or confluent pneumonia. Heart size is within upper range of normal. No significant pleural effusion. IMPRESSION: Mild vascular congestion. No evidence of pneumonia or other acute process. Atherosclerosis of the a dalila. POS: [facility]
[2018-12-29 07:34] LABS: #Basophils 0.1 thou/uL (0.0-0.2); #Eosinphils 0.3 thou/uL (0.0-0.7); #Lymphocytes 2.3 thou/uL (1.20-3.40); #Monocytes 0.6 thou/uL (0.11-0.59); #Neutrophils 4.1 thou/uL (1.40-6.50); %Eosinophils 4.5 % (0.0-10.0); %Lymphocytes 30.6 % (21.0-51.0); %Monocytes 8.1 % (0.0-10.0); %Neutrophils 55.8 % (42.0-75.0); Hemoglobin 12.4 g/dL (12.0-16.0); Mean Corpuscular Hemoglobin 28.2 pg (27.0-31.0); Mean Corpuscular Volume 85.5 fL (78.0-98.0); Mean Platelet Volume 7.5 fL (7.4-10.4); Platelet Count 298 thou/uL (130-400); RBC Distribution Width 14.2 % (11.5-14.5); White Blood Cell (WBC) Count 7.4 thou/uL (4.8-10.8)
[2018-12-29] MEDS: Saccharomyces boulardii 250 MG CAP PO SCH (07:50)
[2018-12-29] MEDS: Senokot S 8.6-50 MG TAB PO SCH ×2 (07:50→20:42)
[2018-12-29] MEDS: Heparin 5,000 UNITS/ML VIAL SC SCH ×2 (07:51→20:42)
[2018-12-29] MEDS: Amlodipine 5 MG TAB PO SCH ×2 (07:51→20:43)
[2018-12-29 07:53] LABS: Albumin 3.6 g/dL (3.4-4.8); Anion Gap 19 mmol/L (10-20); BUN (Urea Nitrogen) 39 mg/dL (9.8-20.1); BUN/Creatinine Ratio 44.32; Calc. Creatinine Clearance 59 mL/min (70-130); Calcium 8.4 mg/dL (7.8-10.44); Carbon Dioxide 17 mmol/L (23-31); Chloride 107 mmol/L (98-107); Estimated GFR-MDRD 64; Glucose 125 mg/dL (80-115); Phosphorus 2.8 mg/dL (2.3-4.7); Potassium 4.6 mmol/L (3.5-5.1); Sodium 138 mmol/L (136-145)
[2018-12-29] MEDS ORDERED: Polyethylene Glycol 3350 17 GM Packet PO SCH (14:45)
[2018-12-29] MEDS: Sodium Chloride 0.9% 1,000 ML IV SCH (15:20)
--- NOTE | 2018-12-29 17:12 | PDOC.PN ---
- Subjective Encounter Start Date: 12/29/18 Encounter Start Time: 12:00 Doing better today. She did eat some breakfast. Patient's daughter and her caregiver are present today. They report she has a hx of cva with left weakness and dementia that has been stable. She had some decline at home and was thought to have UTI by Dr. Johnson. Cx negative. No improvement. Repeat cx negative. Found left breast mass. Was referred for bx. It is cancer. surgery planned. Wednesday got worse with near total cessation of eating and drinking. They believe she is already much improved. - Objective Vital Signs & Weight: Vital Signs (12 hours) Temp Pulse Resp BP BP Pulse Ox 12/29/18 12:41 98.3 F 73 16 96 12/29/18 12:36 93/58 L 12/29/18 08:00 96 12/29/18 07:51 78 126/74 12/29/18 07:20 97.7 F 78 16 126/74 96 Weight Admit Weight 131 lb 9 oz Weight 131 lb 9.6 oz Result Diagrams: 12/29/18 07:18 12/29/18 07:18 Additional Labs: Accuchecks 12/29/18 12/29/18 11:46 05:33 POC Glucose 169 H 110 Phys Exam - Physical Examination Constitutional: NAD Respiratory: no wheezing, no rales, no rhonchi Cardiovascular: RRR, no significant murmur Gastrointestinal: soft, non-tender, no distention, positive bowel sounds Musculoskeletal: no edema Left hemiplegia Deviation from normal: Dementia, but does interact, pleasant. Dx/Plan (1) Starvation ketoacidosis Code(s): E87.2 - ACIDOSIS Status: Acute (2) Failure to thrive Code(s): [id number] - Status: Acute (3) Breast cancer Status: Acute Comment: Recent diagnosis on biopsy. Surgery pending. (4) DM type 2 (diabetes mellitus, type 2) Status: Chronic Qualifiers: Diabetes mellitus pairer inspector insulin use: without pairer inspector use Diabetes mellitus complication status: with unspecified complications Comment: accuchecks, insulin sliding scale (5) HTN (hypertension) Code(s): I10 - ESSENTIAL (PRIMARY) HYPERTENSION Status: Chronic Qualifiers: Hypertension type: essential hypertension Qualified Code(s): I10 - Essential (primary) hypertension Comment: Monitor vital signs, titrate antihypertensives as needed (6) Hemiparesis due to old cerebrovascular accident Code(s): I69.359 - HEMIPLGA FOLLOWING CEREBRAL INFARCTION AFFECTING UNSP SIDE Status: Chronic Comment: L hemiplegia - Plan * Discussed with BELLMAN CAPTAIN. Does not appear to have significant dysphagia. * Concerns from family, caregiver that she had some constipation, but none on CT abd. * metabolic derangements improved with fluids, bicarb. * Stop bicarb. Continue NS at lower rate. * Encourage eating. * If she can continue to eat well and labs ok, consider discharge tomorrow.
[2018-12-29] MEDS ORDERED: Prevnar 13-Val Conj/PF 0.5 ML SYRINGE IM ONE (21:00)
[2018-12-30] MEDS: cefTRIAXone\\ROCEPHIN 1 GM in Sodium Chloride 0.9% 100 ML IVPB SCH (00:01)
[2018-12-30] MEDS: Sodium Chloride 0.9% 1,000 ML IV SCH ×2 (04:17→16:52)
[2018-12-30 05:23] LABS: #Basophils 0.1 thou/uL (0.0-0.2); #Eosinphils 0.3 thou/uL (0.0-0.7); #Lymphocytes 2.4 thou/uL (1.20-3.40); #Monocytes 0.5 thou/uL (0.11-0.59); #Neutrophils 2.6 thou/uL (1.40-6.50); %Basophils 1.4 % (0.0-1.0); %Eosinophils 4.7 % (0.0-10.0); %Monocytes 8.4 % (0.0-10.0); %Neutrophils 44.6 % (42.0-75.0); Hemoglobin 11.4 g/dL (12.0-16.0); Mean Corpuscular Hemoglobin 28.5 pg (27.0-31.0); Mean Corpuscular Volume 86.5 fL (78.0-98.0); Mean Platelet Volume 7.5 fL (7.4-10.4); Platelet Count 292 thou/uL (130-400); RBC Distribution Width 14.1 % (11.5-14.5); Red Blood Cell (RBC) Count 3.99 mill/uL (4.20-5.40); White Blood Cell (WBC) Count 5.8 thou/uL (4.8-10.8)
[2018-12-30 05:39] LABS: Anion Gap 13 mmol/L (10-20); BUN (Urea Nitrogen) 23 mg/dL (9.8-20.1); Calc. Creatinine Clearance 79 mL/min (70-130); Calcium 7.9 mg/dL (7.8-10.44); Carbon Dioxide 23 mmol/L (23-31); Chloride 103 mmol/L (98-107); Estimated GFR-MDRD 90; Glucose 102 mg/dL (80-115); Potassium 3.9 mmol/L (3.5-5.1); Sodium 135 mmol/L (136-145)
[2018-12-30] MEDS: Saccharomyces boulardii 250 MG CAP PO SCH (08:45)
[2018-12-30] MEDS: Senokot S 8.6-50 MG TAB PO SCH (08:45)
[2018-12-30] MEDS: Amlodipine 5 MG TAB PO SCH (08:45)
[2018-12-30] MEDS: Heparin 5,000 UNITS/ML VIAL SC SCH (08:45)
[2018-12-30] MEDS ORDERED: Polyethylene Glycol 3350 17 GM Packet PO SCH (09:00)
[2018-12-30 15:16] VITALS: BP 148/78; TEMP 97.6
== END 2018-12-30 17:04 | disposition home or self-care (01) | DRG 682 ==
LOC: ERS 12:22 → T4-A 18:02
PROVIDERS: ADMIT Emergency Medicine; ATTEND Emergency Medicine
DX: N17.9 Acute kidney failure, unspecified (principal); G93.41 Metabolic encephalopathy; I69.354 Hemiplegia and hemiparesis following cerebral infarction affecting left non-dominant side; E87.2 Acidosis; E44.0 Moderate protein-calorie malnutrition; N18.2 Chronic kidney disease, stage 2 (mild); E86.0 Dehydration; E78.5 Hyperlipidemia, unspecified; E11.22 Type 2 diabetes mellitus with diabetic chronic kidney disease; I12.9 Hypertensive chronic kidney disease with stage 1 through stage 4 chronic kidney disease, or unspecified chronic kidney disease; F03.90 Unspecified dementia, unspecified severity, without behavioral disturbance, psychotic disturbance, mood disturbance, and anxiety; Z88.8 Allergy status to other drugs, medicaments and biological substances; Z79.52 Long term (current) use of systemic steroids; Z79.84 Long term (current) use of oral hypoglycemic drugs; Z79.899 Other long term (current) drug therapy; I69.322 Dysarthria following cerebral infarction; Z90.49 Acquired absence of other specified parts of digestive tract; Z90.710 Acquired absence of both cervix and uterus; Z68.26 Body mass index [BMI] 26.0-26.9, adult
CPT/HCPCS: 36415; 36416; 51701; 71045; 74176; 80048; 80053; 80069; 81003; 81015; 82010; 83605; 83735; 84100; 85025; 87086; 96360; A4353; J0696; J1644; J1815; J3490; J7070

== ENCOUNTER → 2019-02-16 | Day surgery (SDC) | payer MEDICARE ==
--- NOTE | 2019-02-16 10:03 | NM ---
Exam: Lymphoscintigraphy HISTORY: Left breast cancer. Left mastectomy. COMPARISON: None TECHNIQUE: Patient administered 0.4 mCi of technetium 99m filtered sulfur colloid cutaneously at the 12:00, 3:00, 6:00 and 9:00 position with respect of the left areola. FINDINGS: There does appear to be a sentinel lymph node best demonstrated on the lateral projection. This lymph node is presumed to be in the axilla. IMPRESSION: [place] lymph node is presumed to be in the axilla. As per the ordering doctor's request , the skin was not marked.
== END ==
LOC: SDC 07:33
PROVIDERS: ATTEND Pain Medicine Pain Medicine
DX: C50.912 Malignant neoplasm of unspecified site of left female breast (principal)
CPT/HCPCS: 78195; A9541